=== PATIENT | female | born 1945 | race Caucasian/White ===

== ENCOUNTER 2017-01-31 11:07 | Inpatient (IN) | payer MEDICARE, MEDICAID ==
--- NOTE | 2017-01-31 11:18 | ED Physician Chart ---
ED Chief Complaint/HPI - Patient Information Date Seen:: 01/31/17 Time Seen:: 11:10 Chief Complaint:: Diffuse body ache for 2 days. History of Present Illness:: Brought in by ambulance from assisted living facility for the above reason. Pt states she has had diffuse muscle ache for 2 days. Pt denies any h/o fall or bodily injury. No fever, nasal congestion, or cough. Allergies:: Allergies Allergy/AdvReac Type Severity Reaction Status Date / Time Penicillins [PCN] Allergy Unknown Verified 02/11/16 14:41 Vitals:: see Nurse Note. Historian:: Patient, Medical Records (from transferring facility.) Family MD/PCP:: Dr. Navarro LMP:: Postmenopausal Review:: Nurse's Note Reviewed, Transfer documents Reviewed ED Review of Systems - Review of Systems General/Constitutional: No fever, No chills, No weight loss, No weakness, No edema, No loss of appetite Skin: No rash, No bruising Head: No headache, No light-headedness Eyes: No loss of vision, No pain, No diplopia ENT: No earache, No nasal drainage, No sore throat Neck: No neck pain, No thyromegaly, No stiffness Cardio Vascular: No chest pain, No palpitations, No PND, No orthopnea, No edema Pulmonary: No SOB, No cough, No wheezing GI: No nausea, No vomiting, No diarrhea, No pain, No melena, No hematochezia G/U: No dysuria, No frequency, No hematuria Template Maker: No vaginal discharge, No abnormal vaginal bleed Musculoskeletal: No bone or joint pain, No back pain, Muscle pain Endocrine: No polyuria, No polydipsia Psychiatric: No prior psych history, No depression Hematopoietic: No bruising, No lymphadenopathy Allergic/Immuno: No urticaria, No angioedema Neurological: No syncope, No focal symptoms, No weakness, No paresthesia, No headache, No dizziness, No confusion ED Past Medical History - Past Medical History Past Medical History: HTN, PUD/GERD, Other (Chronic anemia) Family History: HTN (parents) Social History: Non Smoker, No Alcohol, No Drug Use, , Care Facility Surgical History: None Medication: Reviewed Family Medical History - Family Member Nephew History Unknown: Yes Mother History Unknown: Yes Ethnicity: Living Status: Hx Family Hypertension: Yes Hx Family Diabetes: Yes ED Physical Exam - Physical Examination General/Constitutional: Awake, Well-developed, well-nourished, Alert, No distress, Non-toxic appearing, Ambulatory Other Gen/Cons comments:: Breathes comfortably, speaks clearly, and interacts appropriately. Head: Atraumatic Eyes: Lids, conjuctiva normal, PERRL, EOMI Skin: No rash, No ecchymosis, No lymphadenopathy ENMT: External ears, nose nl, Nasal exam nl, Oropharynx nl Neck: Nontender, Full ROM w/o pain, No JVD, No nuchal rigidity, No mass, No stridor Respiratory: Nl effort/Exclusion, Clear to Auscultation, No Wheeze/Rhonchi/Rales Cardio Vascular: No murmur, gallop, rubs Other Cardio Vascular comments:: Regular rhythm with mild bradycardia. VR 54. GI: No tenderness/rebounding/guarding, No organomegaly, No hernia, Normal BS's, Nondistended, No mass/bruits Other GI comments:: Abdomen is soft. Extremities: No edema Neuro/Psych: Alert/oriented (oriented x 3), Mood normal, No focal deficits ED Labs/Radiology/EKG Results - Lab Results Results: Laboratory Tests 01/31/17 01/31/17 01/31/17 11:30 11:30 11:30 WBC 8.4 RBC 4.74 Hgb 13.7 Hct 41.5 D MCV 87.6 MCH 28.9 MCHC Differential 33.0 RDW 11.7 Plt Count 133 L D MPV 8.7 Neutrophils % 75.0 Lymphocytes % 12.0 L Monocytes % 8.5 Eosinophils % 4.1 Basophils % 0.4 PT 10.1 INR 0.97 PTT (Actin FS) 24.9 L Sodium 125 L Potassium 1.7 L* Chloride 77 L Carbon Dioxide 36.0 H Anion Gap 13.7 BUN 111 H* Creatinine 2.4 H Est GFR ( Amer) 25.7 Est GFR (Non-Af Amer) 21.2 BUN/Creatinine Ratio 46.3 Glucose 168 H Calcium 9.3 Total Bilirubin 0.8 AST 31 ALT 12 Alkaline Phosphatase 85 Creatine Kinase 643 H Troponin I Total Protein 7.5 Albumin 4.1 Globulin 3.4 Albumin/Globulin Ratio 1.2 11/05/17 11:30 WBC RBC Hgb Hct MCV MCH MCHC Differential RDW Plt Count MPV Neutrophils % Lymphocytes % Monocytes % Eosinophils % Basophils % PT INR PTT (Actin FS) Sodium Potassium Chloride Carbon Dioxide Anion Gap BUN Creatinine Est GFR ( Amer) Est GFR (Non-Af Amer) BUN/Creatinine Ratio Glucose Calcium Total Bilirubin AST ALT Alkaline Phosphatase Creatine Kinase Troponin I 0.03 Total Protein Albumin Globulin Albumin/Globulin Ratio Urinalysis and magnesium level are pending. - EKG Interpretations EKG Time:: 11:26 Rate & Rhythm: Sinus bradycardia with VR 52 Comments:: NSSTT changes. No acute ischemic changes. ED Septic Shock - . Is Septic Shock (SBP<90, OR Lactate>4 mmol\L) present?: No ED Reassessment (Disposition) - Reassessment Reassessment:: 1220 Pt has been repeatedly evaluated. Pt remains stable. Lab results just became available. Because of hypokalemia, pt is to be given intravenous potassium. Magnesium level is to be ordered. Lab and EKG findings have been reviewed with pt. Management plan has been discussed. Admitting physician is to be contacted. 1232 Case was discussed with Dr. Navarro with pertinent H & P, EKG, and available lab findings reviewed. He concurred with present management plan. Pt is to be admitted to ICU under his care. He will following on pending lab results: urinalysis and Mg level. Reassessment Condition:: Improved - Diagnosis Diagnosis:: Hypokalemia. Renal insufficiency with hyponatremia. H/O HTN. H/O chronic anemia, on Fe supplement. Mild hyperglycemia. Mild bradydysrrhythmia. - Patient Disposition Admitted to:: ICU Admitting Medical Physician:: Fidencio Navarro Time:: 12:35 Condition at Disposition:: Stable, Improved
[2017-01-31 11:37] LABS: % BASOPHILS 0.4 % (0.0-2.0); % EOSINOPHILS 4.1 % (0.0-5.0); % MONOCYTES 8.5 % (2.0-10.0); HEMOGLOBIN 13.7 gm/dL (12-16); MEAN CELL VOLUME 87.6 fl (81-100); MEAN CORPUSCULAR HEMOGLOBIN 28.9 pg (27.0-31.0); MEAN PLATELET VOLUME 8.7 fl; NEUTROPHILE ABSOLUTE 6.4 Th/cmm (1.8-8.0); RED BLOOD COUNT 4.74 Mil/cmm (3.80-5.20); RED CELL DISTRIBUTION WIDTH 11.7 % (11.5-20.0); WHITE BLOOD COUNT 8.4 Th/cmm (4.8-10.8)
[2017-01-31 11:39] LABS: HEMATOCRIT 41.5 % (41.0-60); PLATELET COUNT 133 Th/cmm (150-400)
[2017-01-31 12:01] LABS: INR 0.97 (0.5-1.4); PROTHROMBIN TIME (TEST) 10.1 SECONDS (9.5-11.5)
[2017-01-31 12:04] LABS: ALB/GLOB RATIO 1.2 (1.0-1.8); ANION GAP 13.7 (7.0-16.0); BILIRUBIN,TOTAL 0.8 mg/dL (0.3-1.0); BUN/CREATININE RATIO 46.3; CALCIUM SERUM 9.3 mg/dL (8.6-10.3); CREATININE - SERUM 2.4 mg/dL (0.6-1.2)
[2017-01-31 12:10] LABS: POTASSIUM SERUM 1.7 mEq/L (3.5-5.1)
[2017-01-31] MEDS ORDERED: 0.9% NS w/40 mEq KCL 1,000 ML IV ONE (12:24)
[2017-01-31] MEDS ORDERED: KCL 20mEq/100mL Premix 20 MEQ/100 ML PIGGYBACK IV ONE ×2 (12:32→14:26)
[2017-01-31] MEDS: KCL 20mEq/100mL Premix 20 MEQ/100 ML PIGGYBACK IV SCH ×2 (12:39→16:25)
[2017-01-31 12:53] LABS: CREATINE KINASE MB 4.4 ng/mL (0.6-6.3)
[2017-01-31] MEDS ORDERED: Probiotic Screen MC PRN (14:16)
[2017-01-31] MEDS ORDERED: Potassium Phosphate 20 MMOLE in Sodium Chloride 0.9% 250 ML IV ONE (14:17)
--- NOTE | 2017-01-31 14:43 | History and Physical ---
History of Present Illness - HPI Chief Complaint: Body pain HPI: Patient refer that during last 2 days she has having body pain, felling tired. She was send to ER for evaluation and was found Hypokalemia, hyponatremia and SERGE. Vital Signs: Last Vital Signs Temp 98.3 F 01/31/17 13:05 Pulse 50 01/31/17 13:05 Resp 16 01/31/17 13:05 BP 115/54 01/31/17 13:05 Pulse Ox 94 01/31/17 13:05 Past Medical History Cardiovascular: Report: CAD, HTN Pulmonary: Report: No Pertinent Hx GOLF CADDY: Report: No Pertinent Hx GI: Report: No Pertinent Hx Psych: Report: No Pertinent Hx Musculoskeletal: Report: Weakness Rheumatologic: Report: No pertinent Hx Infectious Disease: Report: No Pertinent Hx Renal/: Report: No Pertinent Hx Endocrine: Report: No Pertinent Hx Dermatology: Report: No Pertinent Hx - Past Surgical History Past Surgical History: No pertinent Hx Family Medical History - Family Member Nephew History Unknown: Yes Mother History Unknown: Yes Ethnicity: Living Status: Hx Family Hypertension: Yes Hx Family Diabetes: Yes Social History Smoke: No Alcohol: None Drugs: None Lives: [facility] Domestic Violence: Negative - Medications Home Medications: Home Medication Medication Instructions Recorded Type Dicyclomine [Bentyl 10 Mg Cap*] 20 mg PO TID 01/31/17 History Ferrous Sulfate [Ferosul] 325 mg PO BID 01/31/17 History Furosemide [Lasix] 80 mg PO DAILY 01/31/17 History Gabapentin 800 mg PO TID 01/31/17 History Metolazone 2.5 mg PO MWF 01/31/17 History Pantoprazole Sodium 40 mg PO BID 01/31/17 History Trazodone HCl 200 mg PO HS 01/31/17 History - Allergies Allergies/Adverse Reactions: Allergies Allergy/AdvReac Type Severity Reaction Status Date / Time Penicillins [PCN] Allergy Unknown Verified 02/11/16 14:41 Review of Systems - Review of Systems Constitutional: Report: Weakness Eyes: Report: No Significant ENT: Report: No Significant Respiratory: Report: No Significant Cardiovascular: Report: No Significant Gastrointestinal: Report: No Significant Genitourinary: Report: No Significant Musculoskeletal: Report: Other (Body dave) Skin: Report: No Significant Neurological: Report: Weakness Physical Exam - Physical Exam HEENT: Report: Ears Nose Throat within normal limits Neck: Report: Within normal limits Cardiovascular Systems: Report: Bradycardia Respiratory: Report: Breath Sounds are within normal limits Abdomen: Report: Non-tender to palpation Back: Report: Inspection of back is within normal limits. Extremities: Report: Non-tender to palpation. Skin: Report: Color of skin is within normal limits Neuro/Psych: Report: Disoriented to name time or place - Assessment Assessment: Current Active Problems Problem Status Onset GENERALIZED BODY ACHES Acute Patient is awake, alert, calm in no acute distress. Dx: Hypokalemia, Hyponatremia, SERGE, Bradychardy, HTN, Chronic anemia, GERD - Plan Plan: Patient will placed in ICU, Started with IV NS, K, rergular diet. Continue with some SNF meds. Consult with Nephro and Cardio requested.
[2017-01-31] MEDS: Sodium Chloride 0.9% 1,000 ML IV SCH (16:20)
[2017-01-31] MEDS: Pantoprazole 40 mg EC Tab PO SCH (16:22)
[2017-01-31] MEDS ORDERED: FERROUS SULFATE 325 MG PO SCH (17:00)
[2017-01-31 17:06] LABS: URINE BILIRUBIN NEGATIVE (NEGATIVE); URINE BLOOD NEGATIVE (NEGATIVE); URINE GLUCOSE (UA) NEGATIVE (NEGATIVE); URINE KETONE NEGATIVE (NEGATIVE); URINE PROTEIN NEGATIVE (NEGATIVE); URINE UROBILINOGEN 0.2 E.U./dL (0.2 - 1.0)
[2017-01-31 17:07] LABS: URINE BACTERIA MANY /hpf (NONE SEEN); URINE COLOR YELLOW; URINE EPITHELIAL CELLS FEW /lpf (FEW); URINE RBC 0-2 /hpf (0-5); URINE WBC 25-50 /hpf (0-5)
[2017-01-31 18:22] VITALS: BP 122/68
[2017-01-31] MEDS ORDERED: KCL 20mEq/100mL Premix 20 MEQ/100 ML PIGGYBACK IV SCH (18:30)
[2017-01-31] MEDS ORDERED: Pneumococcal Vaccine 0.5 mL Vial IM ONE (18:37)
[2017-01-31] MEDS ORDERED: Levofloxacin 750mg/150mL 750 MG/150 ML BAG IV SCH (20:00)
[2017-01-31] MEDS ORDERED: Non-Formulary Item 1 EA (Trazodone Hcl [Trazodone Hcl] 200 MG) PO SCH (21:00)
[2017-01-31] MEDS ORDERED: Dicyclomine 10 mg Cap PO SCH (21:00)
[2017-01-31] MEDS ORDERED: Non-Formulary Item 1 EA (Gabapentin [Gabapentin] 800 MG) PO SCH (21:00)
[2017-01-31 22:51] LABS: ANION GAP 13.2 (7.0-16.0); BUN/CREATININE RATIO 48.2; CALCIUM SERUM 9.7 mg/dL (8.6-10.3); CARBON DIOXIDE 36.7 mEq/L (21.0-31.0); CREATININE - SERUM 2.2 mg/dL (0.6-1.2)
[2017-01-31 22:57] LABS: POTASSIUM SERUM 1.9 mEq/L (3.5-5.1)
[2017-02-01 05:37] LABS: ALB/GLOB RATIO 1.1 (1.0-1.8); ANION GAP 10.1 (7.0-16.0); BILIRUBIN,TOTAL 0.6 mg/dL (0.3-1.0); CALCIUM SERUM 9.1 mg/dL (8.6-10.3); CARBON DIOXIDE 36.9 mEq/L (21.0-31.0); MAGNESIUM 1.9 mg/dL (1.9-2.7); PHOSPHOROUS 2.8 mg/dL (2.5-5.0); URIC ACID 19.3 mg/dL (2.3-6.6)
[2017-02-01 06:10] LABS: % BASOPHILS 0.1 % (0.0-2.0); % EOSINOPHILS 3.8 % (0.0-5.0); % LYMPHOCYTES 12.9 % (20.0-50.0); % MONOCYTES 9.3 % (2.0-10.0); % NEUTROPHILS 73.9 % (40.0-80.0); HEMATOCRIT 39.5 % (41.0-60); HEMOGLOBIN 13.2 gm/dL (12-16); MEAN CELL VOLUME 87.2 fl (81-100); MEAN CORPUSCULAR HEMOGLOBIN 29.2 pg (27.0-31.0); MEAN CORPUSCULAR HGB CONC 33.4 pg (28.0-36.0); MEAN PLATELET VOLUME 8.7 fl; NEUTROPHILE ABSOLUTE 6.1 Th/cmm (1.8-8.0); PLATELET COUNT 138 Th/cmm (150-400); RED BLOOD COUNT 4.53 Mil/cmm (3.80-5.20); RED CELL DISTRIBUTION WIDTH 11.8 % (11.5-20.0); WHITE BLOOD COUNT 8.3 Th/cmm (4.8-10.8)
[2017-02-01 06:20] LABS: CHOLESTEROL 152 mg/dL (<200); TRIGLYCERIDES 101 mg/dL (<150)
--- NOTE | 2017-02-01 07:58 | Consultation ---
DATE OF CONSULTATION: 01/31/2017 The patient was in ICU HISTORY OF PRESENT ILLNESS: This 71-year-old female who was seen and examined at the courtesy of Dr. Navarro. The patient was admitted here with history of muscle aches and pains. Evaluated in the Emergency Room, was found to have severe hypokalemia, acute renal failure. She was also found to have sinus bradycardia. She does have history of hypertension, history of muscle weakness and aches and anemia. There is no history of diabetes. No previous history of congestive heart failure with no history of any cardiac problem. Denies any history of chest pain, no history of shortness of breath, no history of PND, no history of orthopnea, no history of cough, no history of fever, no history of hemoptysis, no history of abdominal pain, no history of nausea or vomiting. No history of hematemesis. No history of melena. No history of bleeding per rectum, change in bowel habits. PAST MEDICAL HISTORY: Not much available from the patient. SOCIAL HISTORY: Not a smoker, not a drinker. PHYSICAL EXAMINATION: VITAL SIGNS: Heart rate is about 40 beats per minute, sinus bradycardia, blood pressure is 100/50. SKIN: Normal. HEAD: Normocephalic. EYES: Conjunctivae were pink. There is no icterus in the eyes. Pupils reactive to light. NECK: There was no increased jugular venous distention, no thyromegaly, no lymphadenopathy. Carotids equal both sides. CHEST: Bilaterally symmetrical and moved well with respirations. Respiratory movements equal on both sides. Trachea is central. There is note to percussion. Breath sounds, few scattered rales. CARDIOVASCULAR SYSTEM: PMI not well localized and no positional thrill. No parasternal heave, S1 normal, S2 physiologic. There was no S3, no rub. ABDOMEN: Soft, no tenderness, no rigidity, no guarding and no organomegaly. Bowel sounds normal. EXTREMITIES: No edema, no calf tenderness. Peripheral pulses diminished. IMPRESSION: Bradycardia, hypertension, severe hypokalemia, acute renal failure, muscle aches and weakness and anemia. DISCUSSION AND SUGGESTIONS: This patient who has this bradycardia, but she is hemodynamically stable. Her O2 saturation is also perfect. We will get her echocardiogram in a.m. and repeat EKG, lipid profile, TSH. LABORATORY DATA: On reviewing the lab, she was found to have a sodium of 125, potassium 1.7, chloride 77, glucose 168, BUN ____, creatinine 2.4. CPK was 643. CPK-MB index 0.7, magnesium was 2.0. Troponin 0.03. INR was 0.97. WBC 8.4, hemoglobin 13.7, hematocrit 41.5, platelets 133,000. So Nephrology is already seeing her for hyponatremia, hypokalemia as well as acute renal failure. In the meantime, we will keep you close watch and other orders as dictated above including EKG, echocardiogram, TSH and lipid profile. Further recommendation will be made depending on the rest of tests available. JOB# [id number]
[2017-02-01] MEDS ORDERED: Potassium Chloride 40 MEQ, Lidocaine 1% 20mL Vial 25 MG in Sodium Chloride 0.9% 250 ML IV ONE (08:15)
--- NOTE | 2017-02-01 08:56 | General Progress Note ---
Subjective - Review of Systems Service Date: 02/01/17 Subjective: I feel better Objective - Results Result Diagrams: 02/01/17 05:00 02/01/17 05:00 Recent Labs: Laboratory Last Values WBC 8.3 Th/cmm (4.8-10.8) 02/01/17 05:00 RBC 4.53 Mil/cmm (3.80-5.20) 02/01/17 05:00 Hgb 13.2 gm/dL (12-16) 02/01/17 05:00 Hct 39.5 % (41.0-60) L 02/01/17 05:00 MCV 87.2 fl (81-100) 02/01/17 05:00 MCH 29.2 pg (27.0-31.0) 02/01/17 05:00 MCHC Differential 33.4 pg (28.0-36.0) 02/01/17 05:00 RDW 11.8 % (11.5-20.0) 02/01/17 05:00 Plt Count 138 Th/cmm (150-400) L 02/01/17 05:00 MPV 8.7 fl 02/01/17 05:00 Neutrophils % 73.9 % (40.0-80.0) 02/01/17 05:00 Lymphocytes % 12.9 % (20.0-50.0) L 02/01/17 05:00 Monocytes % 9.3 % (2.0-10.0) 02/01/17 05:00 Eosinophils % 3.8 % (0.0-5.0) 02/01/17 05:00 Basophils % 0.1 % (0.0-2.0) 02/01/17 05:00 Eos Smear Source URINE 01/31/17 15:30 Eos Smear Total Cells NONE SEEN (NONE SEEN) 01/31/17 15:30 PT 10.1 SECONDS (9.5-11.5) 01/31/17 11:30 INR 0.97 (0.5-1.4) 01/31/17 11:30 PTT (Actin FS) 24.9 SECONDS (26.0-38.0) L 01/31/17 11:30 Sodium 126 mEq/L (136-145) L 02/01/17 05:00 Potassium 2.0 mEq/L (3.5-5.1) L* 02/01/17 05:00 Chloride 81 mEq/L (98-107) L 02/01/17 05:00 Carbon Dioxide 36.9 mEq/L (21.0-31.0) H 02/01/17 05:00 Anion Gap 10.1 (7.0-16.0) 02/01/17 05:00 BUN 98 mg/dL (7-25) H* 02/01/17 05:00 Creatinine 2.0 mg/dL (0.6-1.2) H 02/01/17 05:00 Est GFR ( Amer) 31.7 ml/min (>90) 02/01/17 05:00 Est GFR (Non-Af Amer) 26.2 ml/min 02/01/17 05:00 BUN/Creatinine Ratio 49.0 02/01/17 05:00 Glucose 131 mg/dL (40-70) H 02/01/17 05:00 Uric Acid 19.3 mg/dL (2.3-6.6) H 02/01/17 05:00 Calcium 9.1 mg/dL (8.6-10.3) 02/01/17 05:00 Phosphorus 2.8 mg/dL (2.5-5.0) 02/01/17 05:00 Magnesium 1.9 mg/dL (1.9-2.7) 02/01/17 05:00 Total Bilirubin 0.6 mg/dL (0.3-1.0) 02/01/17 05:00 AST 22 U/L (13-39) 02/01/17 05:00 ALT 10 U/L (7-52) 02/01/17 05:00 Alkaline Phosphatase 78 U/L (34-104) 02/01/17 05:00 Creatine Kinase 320 U/L (30-223) H 02/01/17 05:00 CK-MB (CK-2) 4.4 ng/mL (0.6-6.3) 01/31/17 11:30 Troponin I 0.03 ng/mL (0.01-0.05) 01/31/17 11:30 Total Protein 6.9 gm/dL (6.0-8.3) 02/01/17 05:00 Albumin 3.6 gm/dL (3.7-5.3) L 02/01/17 05:00 Globulin 3.3 gm/dL 02/01/17 05:00 Albumin/Globulin Ratio 1.1 (1.0-1.8) 02/01/17 05:00 Triglycerides 101 mg/dL (<150) 02/01/17 05:00 Cholesterol 152 mg/dL (<200) 02/01/17 05:00 LDL Cholesterol Direct 112 mg/dL (75-193) 02/01/17 05:00 HDL Cholesterol 39 mg/dL (23-92) 02/01/17 05:00 TSH 0.72 uIU/ml (0.34-5.60) 02/01/17 05:00 Urine Source CLEAN C 01/31/17 15:30 Urine Color YELLOW 01/31/17 15:30 Urine Clarity HAZY (CLEAR) 01/31/17 15:30 Urine pH 7.0 (4.6 - 8.0) 01/31/17 15:30 Ur Specific [place] 1.010 (1.005-1.030) 01/31/17 15:30 Urine Protein NEGATIVE mg/dL (NEGATIVE) 01/31/17 15:30 Urine Glucose (UA) NEGATIVE mg/dL (NEGATIVE) 01/31/17 15:30 Urine Ketones NEGATIVE mg/dL (NEGATIVE) 01/31/17 15:30 Urine Blood NEGATIVE (NEGATIVE) 01/31/17 15:30 Urine Nitrate NEGATIVE (NEGATIVE) 01/31/17 15:30 Urine Bilirubin NEGATIVE (NEGATIVE) 01/31/17 15:30 Urine Urobilinogen 0.2 E.U./dL (0.2 - 1.0) 01/31/17 15:30 Ur Leukocyte Esterase LARGE (NEGATIVE) H 01/31/17 15:30 Urine RBC 0-2 /hpf (0-5) 01/31/17 15:30 Urine WBC 25-50 /hpf (0-5) H 01/31/17 15:30 Ur Epithelial Cells FEW /lpf (FEW) 01/31/17 15:30 Urine Bacteria MANY /hpf (NONE SEEN) 01/31/17 15:30 Ur Random Sodium 69 mmol/L 01/31/17 15:30 Urine Creatinine 41.0 mg/dl (28.0-217.0) 01/31/17 15:30 - Physical Exam Vitals and I&O: Vital Signs Temp 97.3 F 02/01/17 06:00 Pulse 51 02/01/17 06:50 Resp 14 02/01/17 06:50 BP 105/50 02/01/17 06:00 Pulse Ox 98 02/01/17 06:50 Intake & Output 01/31/17 02/01/17 02/01/17 18:59 06:59 18:59 Intake Total 500 1450 Output Total 50 1400 Balance 450 50 Weight (lbs) 71.214 kg 71.214 kg Intake: Intake, IV Amount 200 1150 KCL 20mEq/100mL Premix 20 100 meq In 100 ml @ 50 mls/ hr IV 1830 [facility] Rx#: [id number] KCL 20mEq/100mL Premix 20 100 meq In 100 ml @ 50 mls/ hr IV Q2H [facility] Rx#: [id number] Levofloxacin 750mg/150mL 150 750 mg In 150 ml @ 100 mls/hr IV Q48H [facility] Rx#: [id number] Sodium Chloride 0.9% 1, 1000 000 ml @ 100 mls/hr IV . Q10H [facility] Rx#:[id number] Oral 300 300 Tube Feeding 0 TPN/PPN 0 Blood Product 0 Lipid 0 Albumin 0 Other 0 Output: Gastric Drainage 0 Urine 50 1400 Stool 0 Urine/Stool Mix 0 Emesis 0 Hemodialysis 0 Other 0 Other: # Voids 1 # Bowel Movements 0 0 Active Medications: Current Medications Sodium Chloride (Nacl 0.9%) 1,000 mls @ 100 mls/hr IV .Q10H [facility] Stop: 04/01/17 14:16 Last Infusion: 02/01/17 02:20 Dose: Infused Levofloxacin (Levaquin Pb) 750 mg in 150 mls @ 100 mls/hr IV Q48H ANT Stop: 04/01/17 19:59 Last Infusion: 01/31/17 22:05 Dose: Infused Potassium Chloride 40 meq/Lidocaine HCl 25 mg/ Sodium Chloride 272.5 mls @ 68 mls/hr IV X1 ONE Stop: 02/01/17 12:15 Last Admin: 02/01/17 08:36 Dose: 68 mls/hr Miscellaneous (Probiotic Screen) 1 ea MC PRN PRN PRN Reason: PROTOCOL Stop: 04/01/17 14:15 Pantoprazole Sodium (Protonix) 40 mg PO BID [facility] Stop: 04/01/17 16:59 Last Admin: 01/31/17 16:22 Dose: 40 mg Potassium Chloride (Klor-Con) 20 meq PO DAILY [facility] Stop: 04/02/17 08:59 General: Alert, Oriented x3, No acute distress HEENT: Atraumatic Neck: Supple Cardiovascular: Regular rate, Other (Low BP) Lungs: Clear to auscultation Abdomen: Bowel sounds, Soft Extremities: Other (No edema) Neurological: Normal gait (Non ambulatory at this moment) Skin: Other (Skin of lower extremities is dark, Pulses are weak) Psych/Mental Status: Mental status NL Assessment/Plan - Problem List Patient Problems: All Active Problems GENERALIZED BODY ACHES (Acute) - Assessment Assessment: Current Active Problems Problem Status Onset GENERALIZED BODY ACHES Acute Patient is awake, alert, calm in no acute distress. Dx: Hypokalemia, Hyponatremia, SERGE, Bradychardy, HTN, Chronic anemia, GERD - Plan Plan: Patient is improving. K, Na, Renal function and creatinine kinese improving. Already seen by Nephro. Will continue to monitor.
[2017-02-01] MEDS ORDERED: Ferrous Sulfate 325 MG TAB PO SCH (09:00)
[2017-02-01] MEDS: Pantoprazole 40 mg EC Tab PO SCH ×2 (09:00→16:24)
[2017-02-01] MEDS: Potassium Chloride 20 mEq ER Tab PO SCH (09:00)
--- NOTE | 2017-02-01 12:08 | Diagnostic Imaging Report ---
Renal ultrasound HISTORY: Abnormal renal function test The exam of the right kidney is very limited. Poor delineation of the renal margins. This appears to exhibit a grossly overall normal size with no obvious focal lesions or hydronephrosis. The left kidney measures 10.6 x 5.2 x 5.4 cm. No definite focal lesions or hydronephrosis. Findings consistent with a Ramírez catheter seen within the lumen of the urinary bladder. IMPRESSION: 1. Very Limited/suboptimal visualization of the right kidney. No obvious hydronephrosis. 2. No definite focal abnormalities or hydronephrosis involving the left kidney.
[2017-02-01 12:21] LABS: CREATINE KINASE MB 2.8 ng/mL (0.6-6.3)
--- NOTE | 2017-02-01 15:34 | General Progress Note ---
Subjective - Review of Systems Service Date: 02/01/17 Subjective: sleeping, arousable Objective - Results Result Diagrams: 02/01/17 05:00 02/01/17 05:00 Recent Labs: Laboratory Last Values WBC 8.3 Th/cmm (4.8-10.8) 02/01/17 05:00 RBC 4.53 Mil/cmm (3.80-5.20) 02/01/17 05:00 Hgb 13.2 gm/dL (12-16) 02/01/17 05:00 Hct 39.5 % (41.0-60) L 02/01/17 05:00 MCV 87.2 fl (81-100) 02/01/17 05:00 MCH 29.2 pg (27.0-31.0) 02/01/17 05:00 MCHC Differential 33.4 pg (28.0-36.0) 02/01/17 05:00 RDW 11.8 % (11.5-20.0) 02/01/17 05:00 Plt Count 138 Th/cmm (150-400) L 02/01/17 05:00 MPV 8.7 fl 02/01/17 05:00 Neutrophils % 73.9 % (40.0-80.0) 02/01/17 05:00 Lymphocytes % 12.9 % (20.0-50.0) L 02/01/17 05:00 Monocytes % 9.3 % (2.0-10.0) 02/01/17 05:00 Eosinophils % 3.8 % (0.0-5.0) 02/01/17 05:00 Basophils % 0.1 % (0.0-2.0) 02/01/17 05:00 Eos Smear Source URINE 01/31/17 15:30 Eos Smear Total Cells NONE SEEN (NONE SEEN) 01/31/17 15:30 PT 10.1 SECONDS (9.5-11.5) 01/31/17 11:30 INR 0.97 (0.5-1.4) 01/31/17 11:30 PTT (Actin FS) 24.9 SECONDS (26.0-38.0) L 01/31/17 11:30 Sodium 126 mEq/L (136-145) L 02/01/17 05:00 Potassium 2.0 mEq/L (3.5-5.1) L* 02/01/17 05:00 Chloride 81 mEq/L (98-107) L 02/01/17 05:00 Carbon Dioxide 36.9 mEq/L (21.0-31.0) H 02/01/17 05:00 Anion Gap 10.1 (7.0-16.0) 02/01/17 05:00 BUN 98 mg/dL (7-25) H* 02/01/17 05:00 Creatinine 2.0 mg/dL (0.6-1.2) H 02/01/17 05:00 Est GFR ( Amer) 31.7 ml/min (>90) 02/01/17 05:00 Est GFR (Non-Af Amer) 26.2 ml/min 02/01/17 05:00 BUN/Creatinine Ratio 49.0 02/01/17 05:00 Glucose 131 mg/dL (40-70) H 02/01/17 05:00 Uric Acid 19.3 mg/dL (2.3-6.6) H 02/01/17 05:00 Calcium 9.1 mg/dL (8.6-10.3) 02/01/17 05:00 Phosphorus 2.8 mg/dL (2.5-5.0) 02/01/17 05:00 Magnesium 1.9 mg/dL (1.9-2.7) 02/01/17 05:00 Total Bilirubin 0.6 mg/dL (0.3-1.0) 02/01/17 05:00 AST 22 U/L (13-39) 02/01/17 05:00 ALT 10 U/L (7-52) 02/01/17 05:00 Alkaline Phosphatase 78 U/L (34-104) 02/01/17 05:00 Creatine Kinase 320 U/L (30-223) H 02/01/17 05:00 CK-MB (CK-2) 2.8 ng/mL (0.6-6.3) 02/01/17 05:00 Troponin I 0.03 ng/mL (0.01-0.05) 01/31/17 11:30 Total Protein 6.9 gm/dL (6.0-8.3) 02/01/17 05:00 Albumin 3.6 gm/dL (3.7-5.3) L 02/01/17 05:00 Globulin 3.3 gm/dL 02/01/17 05:00 Albumin/Globulin Ratio 1.1 (1.0-1.8) 02/01/17 05:00 Triglycerides 101 mg/dL (<150) 02/01/17 05:00 Cholesterol 152 mg/dL (<200) 02/01/17 05:00 LDL Cholesterol Direct 112 mg/dL (75-193) 02/01/17 05:00 HDL Cholesterol 39 mg/dL (23-92) 02/01/17 05:00 TSH 0.72 uIU/ml (0.34-5.60) 02/01/17 05:00 Urine Source CLEAN C 01/31/17 15:30 Urine Color YELLOW 01/31/17 15:30 Urine Clarity HAZY (CLEAR) 01/31/17 15:30 Urine pH 7.0 (4.6 - 8.0) 01/31/17 15:30 Ur Specific [place] 1.010 (1.005-1.030) 01/31/17 15:30 Urine Protein NEGATIVE mg/dL (NEGATIVE) 01/31/17 15:30 Urine Glucose (UA) NEGATIVE mg/dL (NEGATIVE) 01/31/17 15:30 Urine Ketones NEGATIVE mg/dL (NEGATIVE) 01/31/17 15:30 Urine Blood NEGATIVE (NEGATIVE) 01/31/17 15:30 Urine Nitrate NEGATIVE (NEGATIVE) 01/31/17 15:30 Urine Bilirubin NEGATIVE (NEGATIVE) 01/31/17 15:30 Urine Urobilinogen 0.2 E.U./dL (0.2 - 1.0) 01/31/17 15:30 Ur Leukocyte Esterase LARGE (NEGATIVE) H 01/31/17 15:30 Urine RBC 0-2 /hpf (0-5) 01/31/17 15:30 Urine WBC 25-50 /hpf (0-5) H 01/31/17 15:30 Ur Epithelial Cells FEW /lpf (FEW) 01/31/17 15:30 Urine Bacteria MANY /hpf (NONE SEEN) 01/31/17 15:30 Ur Random Sodium 69 mmol/L 01/31/17 15:30 Urine Creatinine 41.0 mg/dl (28.0-217.0) 01/31/17 15:30 - Physical Exam Vitals and I&O: Vital Signs Temp 97 F 02/01/17 11:00 Pulse 53 02/01/17 13:00 Resp 14 02/01/17 13:00 BP 95/43 02/01/17 13:00 Pulse Ox 98 02/01/17 11:00 Intake & Output 01/31/17 02/01/17 02/01/17 18:59 06:59 18:59 Intake Total 500 1450 Output Total 50 1400 Balance 450 50 Weight (lbs) 71.214 kg 71.214 kg Intake: Intake, IV Amount 200 1150 KCL 20mEq/100mL Premix 20 100 meq In 100 ml @ 50 mls/ hr IV 1830 ANT Rx#: [id number] KCL 20mEq/100mL Premix 20 100 meq In 100 ml @ 50 mls/ hr IV Q2H [facility] Rx#: [id number] Levofloxacin 750mg/150mL 150 750 mg In 150 ml @ 100 mls/hr IV Q48H [facility] Rx#: [id number] Sodium Chloride 0.9% 1, 1000 000 ml @ 100 mls/hr IV . Q10H [facility] Rx#:[id number] Oral 300 300 Tube Feeding 0 TPN/PPN 0 Blood Product 0 Lipid 0 Albumin 0 Other 0 Output: Gastric Drainage 0 Urine 50 1400 Stool 0 Urine/Stool Mix 0 Emesis 0 Hemodialysis 0 Other 0 Other: # Voids 1 # Bowel Movements 0 0 Active Medications: Current Medications Sodium Chloride (Nacl 0.9%) 1,000 mls @ 100 mls/hr IV .Q10H [facility] Stop: 04/01/17 14:16 Last Infusion: 02/01/17 02:20 Dose: Infused Levofloxacin (Levaquin Pb) 750 mg in 150 mls @ 100 mls/hr IV Q48H ANT Stop: 04/01/17 19:59 Last Infusion: 01/31/17 22:05 Dose: Infused Miscellaneous (Probiotic Screen) 1 ea MC PRN PRN PRN Reason: PROTOCOL Stop: 04/01/17 14:15 Pantoprazole Sodium (Protonix) 40 mg PO BID ANT Stop: 04/01/17 16:59 Last Admin: 02/01/17 09:00 Dose: 40 mg Potassium Chloride (Klor-Con) 20 meq PO DAILY ANT Stop: 04/02/17 08:59 Last Admin: 02/01/17 09:00 Dose: 20 meq Potassium Chloride (Klor-Con) 40 meq PO X1 ONE Stop: 02/01/17 16:01 General: Alert, Oriented x3, No acute distress HEENT: Atraumatic, EOMI, Mucous membr. moist/pink Neck: Supple, +2 carotid pulse wo bruit Cardiovascular: Regular rate, Normal S1, Normal S2, Other (Low BP) Lungs: Other (decreased BS) Abdomen: Bowel sounds, Soft Extremities: Other (No edema), no Edema Neurological: Sensation intact Skin: no Rash Psych/Mental Status: Mental status NL Assessment/Plan - Problem List Patient Problems: All Active Problems GENERALIZED BODY ACHES (Acute) - Assessment Assessment: Electrolyte abnormalities Cx UTI SERGE Bradycardia 2nd to hypokalemia Ess HTN Anemia CD GERD - Plan Plan: Lab - Result Diagrams 02/01/17 05:00 02/01/17 05:00 Current Medications Sodium Chloride (Nacl 0.9%) 1,000 mls @ 100 mls/hr IV .Q10H ANT Stop: 04/01/17 14:16 Last Infusion: 02/01/17 02:20 Dose: Infused Levofloxacin (Levaquin Pb) 750 mg in 150 mls @ 100 mls/hr IV Q48H ANT Stop: 04/01/17 19:59 Last Infusion: 01/31/17 22:05 Dose: Infused Miscellaneous (Probiotic Screen) 1 ea MC PRN PRN PRN Reason: PROTOCOL Stop: 04/01/17 14:15 Pantoprazole Sodium (Protonix) 40 mg PO BID ANT Stop: 04/01/17 16:59 Last Admin: 02/01/17 09:00 Dose: 40 mg Potassium Chloride (Klor-Con) 20 meq PO DAILY ANT Stop: 04/02/17 08:59 Last Admin: 02/01/17 09:00 Dose: 20 meq Potassium Chloride (Klor-Con) 40 meq PO X1 ONE Stop: 02/01/17 16:01 Kidney fnc gradually improvimg electrolytes basically the same, continue to replace f/u electrolytes, urine C/S
[2017-02-01] MEDS ORDERED: Potassium Chloride 20 mEq ER Tab PO ONE ×2 (16:00→23:52)
--- NOTE | 2017-02-01 16:47 | Consultation ---
DATE OF CONSULTATION: 01/31/2017 REASON FOR CONSULTATION: Acute kidney failure, electrolyte imbalance, and fluid management. HISTORY OF PRESENT ILLNESS: This is a 71-year-old female with past medical history of hypertension who came in because of sudden weakness involving her lower extremities. Two weeks prior to admission, the patient had bipedal edema. She was started on furosemide and metolazone. Two days prior to admission, she gradually developed weakness involving lower extremities. This was associated with muscles aches and pain. A few hours prior to admission, she can no longer ambulate. She was then brought to the Emergency Room. Sodium level was 125 with a potassium of 1.7, BUN/creatinine of 111/2.4 and CO2 of 36. CPK was 643. She had no history of nausea and vomiting as well as diarrhea. PAST MEDICAL HISTORY: 1. Essential hypertension. 2. Peripheral neuropathy. 3. Gastritis. CURRENT MEDICATIONS: She was on metolazone, furosemide, gabapentin, Trazodone, dicyclomine, ferrous sulfate, and pantoprazole. ALLERGIES: No known drug allergies. SOCIAL HISTORY: She did have a history of smoking and alcohol consumption years ago. She also had a history of illicit drug use and quit about 2 years of ago. She has been clean and has been staying at the [facility] living home. She used to be a drug counselor. FAMILY HISTORY: Family history is predominantly diabetes as well as heart disease. REVIEW OF SYSTEMS: CONSTITUTIONAL: She did complain of weakness involving her lower extremities. No fever, no chills. Appetite had been fair. HEENT: No mention of headaches, no dizziness. Vision and hearing acuity has diminished due to age. CARDIORESPIRATORY: No chest pain, palpitations, diaphoresis, or cough. No shortness of breath. GASTROINTESTINAL: She has a history of gastritis. No diarrhea. No abdominal pain or cramping. No nausea or vomiting. No melena or hematochezia. ENDOCRINE: No history of diabetes, thyroid abnormalities, no dyslipidemia. MUSCULOSKELETAL: She has occasional arthralgias. GENITOURINARY: No history of kidney failure in the past; however, she comes in now with acute kidney injury. She has been on diuretics for the last couple of weeks. HEMATOLOGIC: She has no history of anemia. NEUROPSYCH: No syncopal episode. No seizure activity; however, as mentioned, she has generalized weakness involving her lower extremities along with pain and aches. PHYSICAL EXAMINATION: GENERAL: The patient is alert, verbal, comfortable. VITAL SIGNS: Blood pressure now is 111/62, pulse 58, and temperature 98.3 degrees. SKIN: Poor turgor, warm. No rash, no jaundice appreciated. HEENT: Head normocephalic, atraumatic. Eyes: Extraocular muscles intact. Pupils equal, round, reactive to light and accommodates. Anicteric sclerae. [place] conjunctivae. Nose: Midline nasal septum. Mouth: Dry mucosa, good dentition. NECK: Supple, no adenopathy, no thyromegaly, no bruits. Trachea palpated in the midline. CHEST AND CARDIOVASCULAR: S1, S2. No rub, murmur, nor gallop appreciated. Point of maximal impulse fifth intercostal space, left midclavicular line. No abdominal or femoral bruits appreciated. She remains bradycardic. LUNGS: Equal expansion. No use of accessory muscles. No supraclavicular retractions. Decreased breath sounds, but clear to auscultation without any wheeze. BREASTS: Symmetrical, without any discharge. ABDOMEN: Mildly globular, soft. Positive for bowel sounds. No bruits, either diastolic or systolic. RECTAL: Lax sphincter tone. GENITOURINARY: Normal appearing female genitalia. MUSCULOSKELETAL: No effusions present in her joints, but unable to assess her range of motion. EXTREMITIES: No evidence of any edema, cyanosis, nor clubbing with palpable femoral, popliteal, and dorsalis pedis pulses. NEUROLOGIC: The patient is alert, verbal. Motor, upper extremities is 5/5 and lower extremities about 3/5. Sensory intact minute. Cranial nerves II through XII intact. LABORATORY DATA: Revealed a white count of 8.4, hemoglobin 13.7, hematocrit 41.5, platelets 133, and polys 75%. Sodium 125, potassium 1.7, chloride 77, bicarbonate 36, BUN 111, creatinine 2.4, glucose 168, calcium 9.3, magnesium is 2. Creatinine kinase 643. IMPRESSION: 1. Acute kidney injury. MDRD GFR 21 mL per minute. The patient had been taking 2 diuretics for peripheral edema. She eventually developed prerenal azotemia, which could eventually progress to acute tubular injury. 2. Hyponatremia and hypokalemia secondary to her diuretics. 3. Muscles weakness/pain secondary also to her hypokalemia. 4. Contraction alkalosis. 5. Mildly elevated CPK, but doubt the patient has ongoing rhabdomyolysis. 6. Bradycardia secondary to hypokalemia. PLAN: 1. IV fluids. 2. Discontinue furosemide, metolazone. 3. Discontinue gabapentin. 4. Urinalysis. 5. Urine spot sodium, eosinophils, creatinine, and myoglobin. 6. Urine microalbumin to creatinine ratio. 7. Serum osmolality and uric acid. 8. Renal ultrasound. Thank you, Dr. Navarro for this consult. We will follow the patient closely with you. [facility]# [id number]
--- NOTE | 2017-02-01 19:04 | Cardiology ---
02/01/[address] Navarro. M-MODE ECHOCARDIOGRAM: Mitral valve, anterior leaflet of mitral valve shows normal excursion, EF velocity. Posterior leaflet of the mitral valve shows normal excursion. Left ventricular posterior wall shows increased thickness, normal excursion. Interventricular septum shows increased thickness, normal excursion. Hypertrophy of the left ventricle, ejection fraction 71%. Left atrium normal. Aortic root shows normal dimension, normal excursion of aortic leaflets. CONCLUSION: Hypertrophy of the left ventricle, ejection fraction 71%. 2D ECHO: Long axis view showed normal-sized left ventricle with hypertrophy of the left ventricle. Left atrium normal. Aortic root shows normal dimension, normal excursion of aortic leaflets. Short axis view of mitral valve normal. Short axis view of aortic valve normal. Apical four chamber view showed normal-sized left ventricle with hypertrophy of the left ventricle. Left atrium normal. Right ventricular cavity, right atrium normal, no pericardial effusion. CONCLUSION: Hypertrophy of the left ventricle, ejection fraction 71%. Doppler study shows prominent A wave consistent with poor compliance of left ventricle with [id number] tricuspid regurgitation, [id number] pulmonary regurgitation, trace mitral regurgitation. Right ventricular systolic pressure 41 mmHg. [facility]# [id number]
[2017-02-02 04:42] LABS: % BASOPHILS 1.2 % (0.0-2.0); % EOSINOPHILS 6.8 % (0.0-5.0); % LYMPHOCYTES 18.2 % (20.0-50.0); % MONOCYTES 7.2 % (2.0-10.0); % NEUTROPHILS 66.6 % (40.0-80.0); HEMATOCRIT 38.5 % (41.0-60); MEAN CELL VOLUME 87.2 fl (81-100); MEAN CORPUSCULAR HEMOGLOBIN 29.5 pg (27.0-31.0); MEAN CORPUSCULAR HGB CONC 33.9 pg (28.0-36.0); MEAN PLATELET VOLUME 8.5 fl; NEUTROPHILE ABSOLUTE 6.3 Th/cmm (1.8-8.0); PLATELET COUNT 147 Th/cmm (150-400); RED BLOOD COUNT 4.42 Mil/cmm (3.80-5.20); RED CELL DISTRIBUTION WIDTH 11.8 % (11.5-20.0); WHITE BLOOD COUNT 9.4 Th/cmm (4.8-10.8)
[2017-02-02 05:00] LABS: ANION GAP 9.8 (7.0-16.0)
[2017-02-02 05:01] LABS: ALB/GLOB RATIO 1.1 (1.0-1.8); BILIRUBIN,TOTAL 0.4 mg/dL (0.3-1.0); BUN/CREATININE RATIO 39.4; CREATININE - SERUM 1.7 mg/dL (0.6-1.2)
[2017-02-02 05:08] LABS: POTASSIUM SERUM 2.8 mEq/L (3.5-5.1)
[2017-02-02] MEDS ORDERED: Potassium Chloride 20 mEq ER Tab PO ONE ×2 (07:08→10:00)
[2017-02-02] MEDS: Potassium Chloride 20 mEq ER Tab PO SCH (08:25)
[2017-02-02] MEDS: Pantoprazole 40 mg EC Tab PO SCH ×2 (08:25→16:26)
--- NOTE | 2017-02-02 08:48 | General Progress Note ---
Subjective - Review of Systems Service Date: 02/02/17 Subjective: I feel better Objective - Results Result Diagrams: 02/02/17 04:35 02/02/17 04:35 Recent Labs: Laboratory Last Values WBC 9.4 Th/cmm (4.8-10.8) 02/02/17 04:35 RBC 4.42 Mil/cmm (3.80-5.20) 02/02/17 04:35 Hgb 13.0 gm/dL (12-16) 02/02/17 04:35 Hct 38.5 % (41.0-60) L 02/02/17 04:35 MCV 87.2 fl (81-100) 02/02/17 04:35 MCH 29.5 pg (27.0-31.0) 02/02/17 04:35 MCHC Differential 33.9 pg (28.0-36.0) 02/02/17 04:35 RDW 11.8 % (11.5-20.0) 02/02/17 04:35 Plt Count 147 Th/cmm (150-400) L 02/02/17 04:35 MPV 8.5 fl 02/02/17 04:35 Neutrophils % 66.6 % (40.0-80.0) 02/02/17 04:35 Lymphocytes % 18.2 % (20.0-50.0) L 02/02/17 04:35 Monocytes % 7.2 % (2.0-10.0) 02/02/17 04:35 Eosinophils % 6.8 % (0.0-5.0) H 02/02/17 04:35 Basophils % 1.2 % (0.0-2.0) 02/02/17 04:35 Eos Smear Source URINE 01/31/17 15:30 Eos Smear Total Cells NONE SEEN (NONE SEEN) 01/31/17 15:30 PT 10.1 SECONDS (9.5-11.5) 01/31/17 11:30 INR 0.97 (0.5-1.4) 01/31/17 11:30 PTT (Actin FS) 24.9 SECONDS (26.0-38.0) L 01/31/17 11:30 Sodium 130 mEq/L (136-145) L 02/02/17 04:35 Potassium 2.8 mEq/L (3.5-5.1) L* 02/02/17 04:35 Chloride 94 mEq/L (98-107) L 02/02/17 04:35 Carbon Dioxide 29.0 mEq/L (21.0-31.0) 02/02/17 04:35 Anion Gap 9.8 (7.0-16.0) 02/02/17 04:35 BUN 67 mg/dL (7-25) H 02/02/17 04:35 Creatinine 1.7 mg/dL (0.6-1.2) H 02/02/17 04:35 Est GFR ( Amer) 38.2 ml/min (>90) 02/02/17 04:35 Est GFR (Non-Af Amer) 31.6 ml/min 02/02/17 04:35 BUN/Creatinine Ratio 39.4 02/02/17 04:35 Glucose 188 mg/dL (40-70) H D 02/02/17 04:35 Hemoglobin A1c % 5.8 % (4.0-6.0) 02/02/17 04:35 Uric Acid 19.3 mg/dL (2.3-6.6) H 02/01/17 05:00 Calcium 9.0 mg/dL (8.6-10.3) 02/02/17 04:35 Phosphorus 2.8 mg/dL (2.5-5.0) 02/01/17 05:00 Magnesium 1.9 mg/dL (1.9-2.7) 02/01/17 05:00 Total Bilirubin 0.4 mg/dL (0.3-1.0) 02/02/17 04:35 AST 17 U/L (13-39) 02/02/17 04:35 ALT 9 U/L (7-52) 02/02/17 04:35 Alkaline Phosphatase 71 U/L (34-104) 02/02/17 04:35 Creatine Kinase 320 U/L (30-223) H 02/01/17 05:00 CK-MB (CK-2) 2.8 ng/mL (0.6-6.3) 02/01/17 05:00 Troponin I 0.03 ng/mL (0.01-0.05) 01/31/17 11:30 B-Natriuretic Peptide 155.0 pg/mL (5.0-100.0) H 02/02/17 04:35 Total Protein 6.5 gm/dL (6.0-8.3) 02/02/17 04:35 Albumin 3.4 gm/dL (3.7-5.3) L 02/02/17 04:35 Globulin 3.1 gm/dL 02/02/17 04:35 Albumin/Globulin Ratio 1.1 (1.0-1.8) 02/02/17 04:35 Triglycerides 101 mg/dL (<150) 02/01/17 05:00 Cholesterol 152 mg/dL (<200) 02/01/17 05:00 LDL Cholesterol Direct 112 mg/dL (75-193) 02/01/17 05:00 HDL Cholesterol 39 mg/dL (23-92) 02/01/17 05:00 TSH 0.72 uIU/ml (0.34-5.60) 02/01/17 05:00 Urine Source CLEAN C 01/31/17 15:30 Urine Color YELLOW 01/31/17 15:30 Urine Clarity HAZY (CLEAR) 01/31/17 15:30 Urine pH 7.0 (4.6 - 8.0) 01/31/17 15:30 Ur Specific [place] 1.010 (1.005-1.030) 01/31/17 15:30 Urine Protein NEGATIVE mg/dL (NEGATIVE) 01/31/17 15:30 Urine Glucose (UA) NEGATIVE mg/dL (NEGATIVE) 01/31/17 15:30 Urine Ketones NEGATIVE mg/dL (NEGATIVE) 01/31/17 15:30 Urine Blood NEGATIVE (NEGATIVE) 01/31/17 15:30 Urine Nitrate NEGATIVE (NEGATIVE) 01/31/17 15:30 Urine Bilirubin NEGATIVE (NEGATIVE) 01/31/17 15:30 Urine Urobilinogen 0.2 E.U./dL (0.2 - 1.0) 01/31/17 15:30 Ur Leukocyte Esterase LARGE (NEGATIVE) H 01/31/17 15:30 Urine RBC 0-2 /hpf (0-5) 01/31/17 15:30 Urine WBC 25-50 /hpf (0-5) H 01/31/17 15:30 Ur Epithelial Cells FEW /lpf (FEW) 01/31/17 15:30 Urine Bacteria MANY /hpf (NONE SEEN) 01/31/17 15:30 Ur Random Sodium 69 mmol/L 01/31/17 15:30 Urine Creatinine 41.0 mg/dl (28.0-217.0) 01/31/17 15:30 - Physical Exam Vitals and I&O: Vital Signs Temp 98.1 F 02/02/17 05:00 Pulse 60 02/02/17 07:41 Resp 13 02/02/17 07:41 BP 96/50 02/02/17 06:00 Pulse Ox 98 02/02/17 07:41 Intake & Output 02/01/17 02/02/17 02/02/17 18:59 06:59 18:59 Intake Total 700 800 Output Total 1600 1500 Balance -900 -700 Weight (lbs) 71.214 kg 71.214 kg Intake: Oral 700 800 Output: Urine 1600 1500 Active Medications: Current Medications Sodium Chloride (Nacl 0.9%) 1,000 mls @ 100 mls/hr IV .Q10H ANT Stop: 04/01/17 14:16 Last Infusion: 02/01/17 02:20 Dose: Infused Levofloxacin (Levaquin Pb) 750 mg in 150 mls @ 100 mls/hr IV Q48H ANT Stop: 04/01/17 19:59 Last Infusion: 01/31/17 22:05 Dose: Infused Miscellaneous (Probiotic Screen) 1 ea MC PRN PRN PRN Reason: PROTOCOL Stop: 04/01/17 14:15 Pantoprazole Sodium (Protonix) 40 mg PO BID ANT Stop: 04/01/17 16:59 Last Admin: 02/02/17 08:25 Dose: 40 mg Potassium Chloride (Klor-Con) 20 meq PO DAILY ANT Stop: 04/02/17 08:59 Last Admin: 02/02/17 08:25 Dose: 20 meq Potassium Chloride (Klor-Con) 40 meq PO X1 ONE Stop: 02/02/17 10:01 General: Alert, Oriented x3, No acute distress HEENT: Atraumatic, EOMI, Mucous membr. moist/pink Neck: Supple, +2 carotid pulse wo bruit Cardiovascular: Regular rate, Normal S1, Normal S2, Other (Low BP) Lungs: Other (decreased BS) Abdomen: Bowel sounds, Soft Extremities: Other (No edema, ), no Edema Neurological: Sensation intact, Other (Unstable gait) Skin: no Rash Psych/Mental Status: Mental status NL Assessment/Plan - Problem List Patient Problems: All Active Problems GENERALIZED BODY ACHES (Acute) - Assessment Assessment: Current Active Problems Problem Status Onset GENERALIZED BODY ACHES Acute Patient is awake, alert, calm in no acute distress. Dx: Hypokalemia, Hyponatremia, SERGE, [place], HTN, Chronic anemia, GERD. - Plan Plan: Patient is improving, today more alert with less body pain. K, Na, Renal function and creatinine kinese improving. Patient will be transfered to [facility]. Will continue to monitor. Nutritional Asmnt/Malnutr-PDOC - Dietary Evaluation Malnutrition Findings (Please click <Entered> for more info): Nutritional Asmnt/Malnutrition Start: 02/01/17 15: 57 Text: Status: Active Freq: Document 02/01/17 15:57 LCHENG (Rec: 02/01/17 16:30 [email or web address]) Nutritional Asmnt/Malnutrition Patient General Information Nutritional Screening High Risk Consult Diagnosis Acute Renal Failure, Hypokalemia, Hyponatremia Pertinent Medical Hx/Surgical Hx HTN, PUD/GERD, Chronic anemia Subjective Information Consult for wt loss and loss appetite, BS>160 received. Pt from assisted living, awake during the time of visit. Spoke with family, pt usually eat lunch and dinner daily since the breakfast at assisted living is too early in the morning. Usually appetite was good, on regular diet. Appetite decreased in past 3 weeks r/t diarhhea. UBW 180lb, possible wt loss. Pt comsumed about 10% of lunch tray, one bite of burger from outside. Per notes, pt had 25% of dinner last night and 50% of breakfast today. Per RN, pt has denture. Physical exam showed no muscel wasting. Current Diet Order/ Nutrition Support Regular Pertinent Medications Nacl 100ml/hr, Protonix, Kcal, Levaquin Pertinent Labs 02/01: Na 126L, K 2.0L, Cl 81L, BUN 98H, Cr 2.0H, Glu 131H, Alb 3.6L 01/31: Glu 168/134 Nutritional Hx/Data Height 1.5 m Height (Calculated Centimeters) 149.9 Current Weight (lbs) 71.214 kg Weight (Calculated Kilograms) 71.2 Weight (Calculated Grams) 60480.0 Usual body Weight (lbs) 180 % Usual Body Weight 87 [place] Body Weight 95 % [place] Body Weight 165 Body Mass Index (BMI) 31.7 Recent Weight Change Yes Weight Status Overweight GI Symptoms GI Symptoms None Difficult in: None Food Allergies No Usual diet at home Pt was on regular diet at assisted living Skin Integrity/Comment: intact Current %PO Poor (25-49%) Estimated Nutritional Goals BEE in Kcals: Using Current wt Calories/Kcals/Kg 25-27 Kcals Calculated 7317-0123 Protein: Using Current wt Protein g/k Protein Calculated 71g monitor renal labs Fluid: ml Per MD d/t acute renal failure Nutritional Problem 2. Problem Problem Inadequant oral intake Etiology poor appetite Signs/Symptoms: PO intake 25-50% 1. Problem Problem Altered nutrition related lab values Etiology dx of acute renal failure Signs/Symptoms: BUN 98H, Cr 2.0H, Malnutrition Alert Protein-Calorie Malnutrition N/A Is there a minimum of two criteria No selected? Query Text:Check all the applicable criteria. A minimum of two criteria are recommended for diagnosis of either severe or non-severe malnutrition. Intervention/Recommendation Comments 1. Recommend Boost TID to increase nutritional intake. Explained supplement to pt family, and family is willing to take it. 2. F/U as high rist in 2-3 days, 02/03-02/04 Expected Outcomes/Goals Expected Outcomes/Goals 1. PO intake>75% to meet 100% of nutritional needs, comsume at least 1 serving of supplement per day 2. Wt to remain stable 3. Labs to improve 4. Skin to remain intact
[2017-02-02 12:17] LABS: MICROALBUMIN RANDOM RUINE 5.7 ug/mL (Not Estab.)
[2017-02-02 12:47] LABS: ANION GAP 8.7 (7.0-16.0); BUN/CREATININE RATIO 41.4; CALCIUM SERUM 9.3 mg/dL (8.6-10.3); CARBON DIOXIDE 28.5 mEq/L (21.0-31.0); CREATININE - SERUM 1.4 mg/dL (0.6-1.2); POTASSIUM SERUM 3.2 mEq/L (3.5-5.1)
--- NOTE | 2017-02-02 13:32 | Consultation ---
Consult Note - Consult Note Service Date: 02/02/17 Referring Physician: Fidencio Navarro Consult Note: PHYSICIAN Consultation Note: Date of Admission: 01/31/17 Purpose of Consultation: UTI. Chief Complaint: Patient HARDEEP GREGG was admitted to [facility] Telemetry with HYPOKALEMIA, HYPONATREMIA,ACUTE RENAL FAILURE. History of Present Illness: Patient is 71-year-old female with a past medical history of hypertension, GERD , PUD, chronic anemia brought in for diffuse body ache. On initial evaluation, her temperature was 97.7F and WBC count was 8400. Patient is receiving Levaquin. ID consult was called for further antibiotic management. Past Medical History: Hypertension, GERD, PUD, chronic anemia. Diagnoses ANEMIA, UNSPECIFIED (01/31/17) HYPO-OSMOLALITY AND HYPONATREMIA (01/31/17) HYPOKALEMIA (01/31/17) ESSENTIAL (PRIMARY) HYPERTENSION (01/31/17) ATHSCL HEART DISEASE OF [place] CORONARY ARTERY W/O ANG PCTRS (01/31/17) GASTRO-ESOPHAGEAL REFLUX DISEASE WITHOUT ESOPHAGITIS (01/31/17) ACUTE KIDNEY FAILURE, UNSPECIFIED (01/31/17) BRADYCARDIA, UNSPECIFIED (01/31/17) HYPERGLYCEMIA, UNSPECIFIED (01/31/17) Allergies Allergy/AdvReac Type Severity Reaction Status Date / Time Penicillins [PCN] Allergy Unknown Verified 02/11/16 14:41 Vital Signs Temp 98.6 F 02/02/17 11:00 Pulse 79 02/02/17 11:00 Resp 18 02/02/17 11:27 BP 91/52 02/02/17 11:00 Pulse Ox 99 02/02/17 11:00 Intake & Output 02/01/17 02/02/17 02/02/17 18:59 06:59 18:59 Intake Total 700 800 300 Output Total 1600 1500 750 Balance -900 -700 -450 Weight (lbs) 71.214 kg 71.214 kg 71.214 kg Intake: Oral 700 800 300 Output: Urine 1600 1500 750 Laboratory Results - last 24 hr 01/31/17 02/01/17 02/02/17 15:30 23:15 04:35 WBC 9.4 RBC 4.42 Hgb 13.0 Hct 38.5 L MCV 87.2 MCH 29.5 MCHC Differential 33.9 RDW 11.8 Plt Count 147 L MPV 8.5 Neutrophils % 66.6 Lymphocytes % 18.2 L Monocytes % 7.2 Eosinophils % 6.8 H Basophils % 1.2 Sodium Potassium 2.7 L* Chloride Carbon Dioxide Anion Gap BUN Creatinine Est GFR ( Amer) Est GFR (Non-Af Amer) BUN/Creatinine Ratio Glucose Hemoglobin A1c % Calcium Total Bilirubin AST ALT Alkaline Phosphatase B-Natriuretic Peptide Total Protein Albumin Globulin Albumin/Globulin Ratio Urine Creatinine 36.5 Urine Microalbumin 5.7 Microalb/Creat Ratio 15.6 02/02/17 02/02/17 02/02/17 04:35 04:35 04:35 WBC RBC Hgb Hct MCV MCH MCHC Differential RDW Plt Count MPV Neutrophils % Lymphocytes % Monocytes % Eosinophils % Basophils % Sodium 130 L Potassium 2.8 L* Chloride 94 L Carbon Dioxide 29.0 Anion Gap 9.8 BUN 67 H Creatinine 1.7 H Est GFR ( Amer) 38.2 Est GFR (Non-Af Amer) 31.6 BUN/Creatinine Ratio 39.4 Glucose 188 H D Hemoglobin A1c % 5.8 Calcium 9.0 Total Bilirubin 0.4 AST 17 ALT 9 Alkaline Phosphatase 71 B-Natriuretic Peptide 155.0 H Total Protein 6.5 Albumin 3.4 L Globulin 3.1 Albumin/Globulin Ratio 1.1 Urine Creatinine Urine Microalbumin Microalb/Creat Ratio 02/02/17 12:20 WBC RBC Hgb Hct MCV MCH MCHC Differential RDW Plt Count MPV Neutrophils % Lymphocytes % Monocytes % Eosinophils % Basophils % Sodium 130 L Potassium 3.2 L Chloride 96 L Carbon Dioxide 28.5 Anion Gap 8.7 BUN 58 H Creatinine 1.4 H Est GFR ( Amer) 47.8 Est GFR (Non-Af Amer) 39.5 BUN/Creatinine Ratio 41.4 Glucose 97 H D Hemoglobin A1c % Calcium 9.3 Total Bilirubin AST ALT Alkaline Phosphatase B-Natriuretic Peptide Total Protein Albumin Globulin Albumin/Globulin Ratio Urine Creatinine Urine Microalbumin Microalb/Creat Ratio Home Medication Medication Instructions Recorded Type Dicyclomine [Bentyl 10 Mg Cap*] 20 mg PO TID 01/31/17 History Ferrous Sulfate [Ferosul] 325 mg PO BID 01/31/17 History Furosemide [Lasix] 80 mg PO DAILY 01/31/17 History Gabapentin 800 mg PO TID 01/31/17 History Metolazone 2.5 mg PO MWF 01/31/17 History Pantoprazole Sodium 40 mg PO BID 01/31/17 History Trazodone HCl 200 mg PO HS 01/31/17 History Current Medications Generic Name Dose Route Start Last Admin Trade Name Freq PRN Reason Stop Dose Admin Sodium Chloride 1,000 mls @ 100 mls/hr 01/31/17 14:17 02/01/17 02:20 Nacl 0.9% IV 04/01/17 14:16 Infused .Q10H ANT Infusion Levofloxacin 750 mg in 150 mls @ 100 mls/hr 01/31/17 20:00 01/31/17 22:05 Levaquin Pb IV 04/01/17 19:59 Infused Q48H ANT Infusion Miscellaneous 1 ea 01/31/17 14:16 Probiotic Screen MC 04/01/17 14:15 PRN PRN PROTOCOL Pantoprazole Sodium 40 mg 01/31/17 17:00 02/02/17 08:25 Protonix PO 04/01/17 16:59 40 mg BID ANT Administration Potassium Chloride 20 meq 02/01/17 09:00 02/02/17 08:25 Klor-Con PO 04/02/17 08:59 20 meq DAILY ANT Administration Review of Systems: A 12 point ROS was reviewed with the pertinent positive and negatives noted in the HPI. 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 Family Medical History Mother History Unknown Yes Ethnicity Living Status Hx Family Hypertension Yes Hx Family Diabetes Yes Physical Exam: General: Comfortable, not in acute distress. Obese. HEENT: Head: Normocephalic. Oral cavity: Moist, pink tongue. Face: Symmetrical. Eyes: Pallor is present, no icterus. Pupils PERRLA. EOMI. Neck: Supple, no JVD, no use of X his neck muscles. Cardio: S1 and S2 within normal limits regular rhythm no murmur no gallop. Respiratory: Vesicular breath sound, no crackles, no wheezing. Abdominal: Soft, nontender, nondistended, bowel sounds present. Genital/Urinary: Deferred. Extremities: No cyanosis, no clubbing, no edema. Neurological: Alert, awake, oriented 3. Assessment: 1. UTI, ESBL Escherichia coli. Renal ultrasound showed no evidence of hydronephrosis. 2. Hypertension. 3. Electrolyte Imbalance. 4. Acute renal failure improving. Likely ATN. 5. History of PUD. Plan: Will restart Bactrim by mouth twice a day for 5 days. Signed, Yg Garcia M.D. [id number]/02/[id number]
--- NOTE | 2017-02-02 14:03 | General Progress Note ---
Subjective - Review of Systems Service Date: 02/02/17 Subjective: more alert, verbalizing Objective - Results Result Diagrams: 02/02/17 04:35 02/02/17 12:20 Recent Labs: Laboratory Last Values WBC 9.4 Th/cmm (4.8-10.8) 02/02/17 04:35 RBC 4.42 Mil/cmm (3.80-5.20) 02/02/17 04:35 Hgb 13.0 gm/dL (12-16) 02/02/17 04:35 Hct 38.5 % (41.0-60) L 02/02/17 04:35 MCV 87.2 fl (81-100) 02/02/17 04:35 MCH 29.5 pg (27.0-31.0) 02/02/17 04:35 MCHC Differential 33.9 pg (28.0-36.0) 02/02/17 04:35 RDW 11.8 % (11.5-20.0) 02/02/17 04:35 Plt Count 147 Th/cmm (150-400) L 02/02/17 04:35 MPV 8.5 fl 02/02/17 04:35 Neutrophils % 66.6 % (40.0-80.0) 02/02/17 04:35 Lymphocytes % 18.2 % (20.0-50.0) L 02/02/17 04:35 Monocytes % 7.2 % (2.0-10.0) 02/02/17 04:35 Eosinophils % 6.8 % (0.0-5.0) H 02/02/17 04:35 Basophils % 1.2 % (0.0-2.0) 02/02/17 04:35 Eos Smear Source URINE 01/31/17 15:30 Eos Smear Total Cells NONE SEEN (NONE SEEN) 01/31/17 15:30 PT 10.1 SECONDS (9.5-11.5) 01/31/17 11:30 INR 0.97 (0.5-1.4) 01/31/17 11:30 PTT (Actin FS) 24.9 SECONDS (26.0-38.0) L 01/31/17 11:30 Sodium 130 mEq/L (136-145) L 02/02/17 12:20 Potassium 3.2 mEq/L (3.5-5.1) L 02/02/17 12:20 Chloride 96 mEq/L (98-107) L 02/02/17 12:20 Carbon Dioxide 28.5 mEq/L (21.0-31.0) 02/02/17 12:20 Anion Gap 8.7 (7.0-16.0) 02/02/17 12:20 BUN 58 mg/dL (7-25) H 02/02/17 12:20 Creatinine 1.4 mg/dL (0.6-1.2) H 02/02/17 12:20 Est GFR ( Amer) 47.8 ml/min (>90) 02/02/17 12:20 Est GFR (Non-Af Amer) 39.5 ml/min 02/02/17 12:20 BUN/Creatinine Ratio 41.4 02/02/17 12:20 Glucose 97 mg/dL (40-70) H D 02/02/17 12:20 Hemoglobin A1c % 5.8 % (4.0-6.0) 02/02/17 04:35 Uric Acid 19.3 mg/dL (2.3-6.6) H 02/01/17 05:00 Calcium 9.3 mg/dL (8.6-10.3) 02/02/17 12:20 Phosphorus 2.8 mg/dL (2.5-5.0) 02/01/17 05:00 Magnesium 1.9 mg/dL (1.9-2.7) 02/01/17 05:00 Total Bilirubin 0.4 mg/dL (0.3-1.0) 02/02/17 04:35 AST 17 U/L (13-39) 02/02/17 04:35 ALT 9 U/L (7-52) 02/02/17 04:35 Alkaline Phosphatase 71 U/L (34-104) 02/02/17 04:35 Creatine Kinase 320 U/L (30-223) H 02/01/17 05:00 CK-MB (CK-2) 2.8 ng/mL (0.6-6.3) 02/01/17 05:00 Troponin I 0.03 ng/mL (0.01-0.05) 01/31/17 11:30 B-Natriuretic Peptide 155.0 pg/mL (5.0-100.0) H 02/02/17 04:35 Total Protein 6.5 gm/dL (6.0-8.3) 02/02/17 04:35 Albumin 3.4 gm/dL (3.7-5.3) L 02/02/17 04:35 Globulin 3.1 gm/dL 02/02/17 04:35 Albumin/Globulin Ratio 1.1 (1.0-1.8) 02/02/17 04:35 Triglycerides 101 mg/dL (<150) 02/01/17 05:00 Cholesterol 152 mg/dL (<200) 02/01/17 05:00 LDL Cholesterol Direct 112 mg/dL (75-193) 02/01/17 05:00 HDL Cholesterol 39 mg/dL (23-92) 02/01/17 05:00 TSH 0.72 uIU/ml (0.34-5.60) 02/01/17 05:00 Urine Source CLEAN C 01/31/17 15:30 Urine Color YELLOW 01/31/17 15:30 Urine Clarity HAZY (CLEAR) 01/31/17 15:30 Urine pH 7.0 (4.6 - 8.0) 01/31/17 15:30 Ur Specific [place] 1.010 (1.005-1.030) 01/31/17 15:30 Urine Protein NEGATIVE mg/dL (NEGATIVE) 01/31/17 15:30 Urine Glucose (UA) NEGATIVE mg/dL (NEGATIVE) 01/31/17 15:30 Urine Ketones NEGATIVE mg/dL (NEGATIVE) 01/31/17 15:30 Urine Blood NEGATIVE (NEGATIVE) 01/31/17 15:30 Urine Nitrate NEGATIVE (NEGATIVE) 01/31/17 15:30 Urine Bilirubin NEGATIVE (NEGATIVE) 01/31/17 15:30 Urine Urobilinogen 0.2 E.U./dL (0.2 - 1.0) 01/31/17 15:30 Ur Leukocyte Esterase LARGE (NEGATIVE) H 01/31/17 15:30 Urine RBC 0-2 /hpf (0-5) 01/31/17 15:30 Urine WBC 25-50 /hpf (0-5) H 01/31/17 15:30 Ur Epithelial Cells FEW /lpf (FEW) 01/31/17 15:30 Urine Bacteria MANY /hpf (NONE SEEN) 01/31/17 15:30 Ur Random Sodium 69 mmol/L 01/31/17 15:30 Urine Creatinine 36.5 mg/dl (Not Estab.) 01/31/17 15:30 Urine Microalbumin 5.7 ug/mL (Not Estab.) 01/31/17 15:30 Microalb/Creat Ratio 15.6 01/31/17 15:30 - Physical Exam Vitals and I&O: Vital Signs Temp 98.6 F 02/02/17 11:00 Pulse 79 02/02/17 11:00 Resp 18 02/02/17 11:27 BP 91/52 02/02/17 11:00 Pulse Ox 99 02/02/17 11:00 Intake & Output 02/01/17 02/02/17 02/02/17 18:59 06:59 18:59 Intake Total 700 800 300 Output Total 1600 1500 750 Balance -900 -700 -450 Weight (lbs) 71.214 kg 71.214 kg 71.214 kg Intake: Oral 700 800 300 Output: Urine 1600 1500 750 Active Medications: Current Medications Sodium Chloride (Nacl 0.9%) 1,000 mls @ 100 mls/hr IV .Q10H [facility] Stop: 04/01/17 14:16 Last Infusion: 02/01/17 02:20 Dose: Infused Levofloxacin (Levaquin Pb) 750 mg in 150 mls @ 100 mls/hr IV Q48H [facility] Stop: 04/01/17 19:59 Last Infusion: 01/31/17 22:05 Dose: Infused Miscellaneous (Probiotic Screen) 1 ea MC PRN PRN PRN Reason: PROTOCOL Stop: 04/01/17 14:15 Pantoprazole Sodium (Protonix) 40 mg PO BID [facility] Stop: 04/01/17 16:59 Last Admin: 02/02/17 08:25 Dose: 40 mg Potassium Chloride (Klor-Con) 20 meq PO DAILY ANT Stop: 04/02/17 08:59 Last Admin: 02/02/17 08:25 Dose: 20 meq Trimethoprim/Sulfamethoxazole (Bactrim Ds) 1 tab PO BID [facility] Stop: 04/03/17 16:59 General: Alert, Oriented x3, No acute distress HEENT: Atraumatic, PERRLA, EOMI, Mucous membr. moist/pink Neck: Supple, +2 carotid pulse wo bruit Cardiovascular: Regular rate, Normal S1, Normal S2, Other (Low BP) Lungs: Other (decreased BS) Abdomen: Bowel sounds, Soft Extremities: Other (No edema, ), no Edema Neurological: Sensation intact, Other (Unstable gait) Skin: no Rash Psych/Mental Status: Mood NL Assessment/Plan - Problem List Patient Problems: All Active Problems GENERALIZED BODY ACHES (Acute) - Assessment Assessment: Electrolyte abnormalities Cx UTI SERGE Bradycardia 2nd to hypokalemia Ess HTN Anemia CD GERD - Plan Plan: Lab - Result Diagrams 02/01/17 05:00 02/01/17 05:00 Current Medications Sodium Chloride (Nacl 0.9%) 1,000 mls @ 100 mls/hr IV .Q10H ANT Stop: 04/01/17 14:16 Last Infusion: 02/01/17 02:20 Dose: Infused Levofloxacin (Levaquin Pb) 750 mg in 150 mls @ 100 mls/hr IV Q48H ANT Stop: 04/01/17 19:59 Last Infusion: 01/31/17 22:05 Dose: Infused Miscellaneous (Probiotic Screen) 1 ea MC PRN PRN PRN Reason: PROTOCOL Stop: 04/01/17 14:15 Pantoprazole Sodium (Protonix) 40 mg PO BID ANT Stop: 04/01/17 16:59 Last Admin: 02/01/17 09:00 Dose: 40 mg Potassium Chloride (Klor-Con) 20 meq PO DAILY ANT Stop: 04/02/17 08:59 Last Admin: 02/01/17 09:00 Dose: 20 meq Potassium Chloride (Klor-Con) 40 meq PO X1 ONE Stop: 02/01/17 16:01 Lab - Result Diagrams 02/02/17 04:35 02/02/17 12:20 Kidney fnc gradually improvimg Na up to 130, K to 3.2 started on Bactrim, f/u cr. closely f/u electrolytes, urine C/S Nutritional Asmnt/Malnutr-PDOC - Dietary Evaluation Malnutrition Findings (Please click <Entered> for more info): Nutritional Asmnt/Malnutrition Start: 02/01/17 15: 57 Text: Status: Active Freq: Document 02/01/17 15:57 VICTORIA (Rec: 02/01/17 16:30 LCHENG [id number]) Nutritional Asmnt/Malnutrition Patient General Information Nutritional Screening High Risk Consult Diagnosis Acute Renal Failure, Hypokalemia, Hyponatremia Pertinent Medical Hx/Surgical Hx HTN, PUD/GERD, Chronic anemia Subjective Information Consult for wt loss and loss appetite, BS>160 received. Pt from assisted living, awake during the time of visit. Spoke with family, pt usually eat lunch and dinner daily since the breakfast at assisted living is too early in the morning. Usually appetite was good, on regular diet. Appetite decreased in past 3 weeks r/t diarhhea. UBW 180lb, possible wt loss. Pt comsumed about 10% of lunch tray, one bite of burger from outside. Per notes, pt had 25% of dinner last night and 50% of breakfast today. Per RN, pt has denture. Physical exam showed no muscel wasting. Current Diet Order/ Nutrition Support Regular Pertinent Medications Nacl 100ml/hr, Protonix, Kcal, Levaquin Pertinent Labs 02/01: Na 126L, K 2.0L, Cl 81L, BUN 98H, Cr 2.0H, Glu 131H, Alb 3.6L 01/31: Glu 168/134 Nutritional Hx/Data Height 1.5 m Height (Calculated Centimeters) 149.9 Current Weight (lbs) 71.214 kg Weight (Calculated Kilograms) 71.2 Weight (Calculated Grams) 83802.0 Usual body Weight (lbs) 180 % Usual Body Weight 87 [place] Body Weight 95 % [place] Body Weight 165 Body Mass Index (BMI) 31.7 Recent Weight Change Yes Weight Status Overweight GI Symptoms GI Symptoms None Difficult in: None Food Allergies No Usual diet at home Pt was on regular diet at assisted living Skin Integrity/Comment: intact Current %PO Poor (25-49%) Estimated Nutritional Goals BEE in Kcals: Using Current wt Calories/Kcals/Kg 25-27 Kcals Calculated 8667-5166 Protein: Using Current wt Protein g/k Protein Calculated 71g monitor renal labs Fluid: ml Per MD d/t acute renal failure Nutritional Problem 2. Problem Problem Inadequant oral intake Etiology poor appetite Signs/Symptoms: PO intake 25-50% 1. Problem Problem Altered nutrition related lab values Etiology dx of acute renal failure Signs/Symptoms: BUN 98H, Cr 2.0H, Malnutrition Alert Protein-Calorie Malnutrition N/A Is there a minimum of two criteria No selected? Query Text:Check all the applicable criteria. A minimum of two criteria are recommended for diagnosis of either severe or non-severe malnutrition. Intervention/Recommendation Comments 1. Recommend Boost TID to increase nutritional intake. Explained supplement to pt family, and family is willing to take it. 2. F/U as high rist in 2-3 days, 02/03-02/04 Expected Outcomes/Goals Expected Outcomes/Goals 1. PO intake>75% to meet 100% of nutritional needs, comsume at least 1 serving of supplement per day 2. Wt to remain stable 3. Labs to improve 4. Skin to remain intact
[2017-02-02] MEDS: Sulfamethoxazole/TMP 800/160mg Tab PO SCH (16:25)
[2017-02-02] MEDS: Sodium Chloride 0.9% 1,000 ML IV SCH (21:04)
[2017-02-03 06:09] LABS: % BASOPHILS 0.5 % (0.0-2.0); % EOSINOPHILS 4.8 % (0.0-5.0); % MONOCYTES 7.3 % (2.0-10.0); % NEUTROPHILS 66.4 % (40.0-80.0); HEMATOCRIT 40.3 % (41.0-60); HEMOGLOBIN 13.3 gm/dL (12-16); MEAN CELL VOLUME 88.7 fl (81-100); MEAN CORPUSCULAR HEMOGLOBIN 29.4 pg (27.0-31.0); MEAN CORPUSCULAR HGB CONC 33.1 pg (28.0-36.0); MEAN PLATELET VOLUME 8.5 fl; PLATELET COUNT 156 Th/cmm (150-400); RED BLOOD COUNT 4.54 Mil/cmm (3.80-5.20); WHITE BLOOD COUNT 8.8 Th/cmm (4.8-10.8)
[2017-02-03 06:44] LABS: ALB/GLOB RATIO 1.1 (1.0-1.8); ANION GAP 12.6 (7.0-16.0); BILIRUBIN,TOTAL 0.4 mg/dL (0.3-1.0); BUN/CREATININE RATIO 27.1; CALCIUM SERUM 9.2 mg/dL (8.6-10.3); CARBON DIOXIDE 23.6 mEq/L (21.0-31.0); CREATININE - SERUM 1.4 mg/dL (0.6-1.2); POTASSIUM SERUM 3.2 mEq/L (3.5-5.1)
[2017-02-03] MEDS: Potassium Chloride 20 mEq ER Tab PO SCH (09:35)
[2017-02-03] MEDS: Sulfamethoxazole/TMP 800/160mg Tab PO SCH ×2 (09:35→18:15)
[2017-02-03] MEDS: Pantoprazole 40 mg EC Tab PO SCH ×2 (09:35→18:14)
[2017-02-03] MEDS ORDERED: KCL 20mEq/100mL Premix 20 MEQ/100 ML PIGGYBACK IV ONE (10:56)
--- NOTE | 2017-02-03 11:20 | General Progress Note ---
Subjective - Review of Systems Service Date: 02/03/17 Subjective: I feel better Objective - Results Result Diagrams: 02/03/17 05:38 02/03/17 05:38 Recent Labs: Laboratory Last Values WBC 8.8 Th/cmm (4.8-10.8) 02/03/17 05:38 RBC 4.54 Mil/cmm (3.80-5.20) 02/03/17 05:38 Hgb 13.3 gm/dL (12-16) 02/03/17 05:38 Hct 40.3 % (41.0-60) L 02/03/17 05:38 MCV 88.7 fl (81-100) 02/03/17 05:38 MCH 29.4 pg (27.0-31.0) 02/03/17 05:38 MCHC Differential 33.1 pg (28.0-36.0) 02/03/17 05:38 RDW 12.0 % (11.5-20.0) 02/03/17 05:38 Plt Count 156 Th/cmm (150-400) 02/03/17 05:38 MPV 8.5 fl 02/03/17 05:38 Neutrophils % 66.4 % (40.0-80.0) 02/03/17 05:38 Lymphocytes % 21.0 % (20.0-50.0) 02/03/17 05:38 Monocytes % 7.3 % (2.0-10.0) 02/03/17 05:38 Eosinophils % 4.8 % (0.0-5.0) 02/03/17 05:38 Basophils % 0.5 % (0.0-2.0) 02/03/17 05:38 Eos Smear Source URINE 01/31/17 15:30 Eos Smear Total Cells NONE SEEN (NONE SEEN) 01/31/17 15:30 PT 10.1 SECONDS (9.5-11.5) 01/31/17 11:30 INR 0.97 (0.5-1.4) 01/31/17 11:30 PTT (Actin FS) 24.9 SECONDS (26.0-38.0) L 01/31/17 11:30 Sodium 132 mEq/L (136-145) L 02/03/17 05:38 Potassium 3.2 mEq/L (3.5-5.1) L 02/03/17 05:38 Chloride 99 mEq/L (98-107) 02/03/17 05:38 Carbon Dioxide 23.6 mEq/L (21.0-31.0) 02/03/17 05:38 Anion Gap 12.6 (7.0-16.0) 02/03/17 05:38 BUN 38 mg/dL (7-25) H 02/03/17 05:38 Creatinine 1.4 mg/dL (0.6-1.2) H 02/03/17 05:38 Est GFR ( Amer) 47.8 ml/min (>90) 02/03/17 05:38 Est GFR (Non-Af Amer) 39.5 ml/min 02/03/17 05:38 BUN/Creatinine Ratio 27.1 02/03/17 05:38 Glucose 122 mg/dL (40-70) H D 02/03/17 05:38 Hemoglobin A1c % 5.8 % (4.0-6.0) 02/02/17 04:35 Plasma/Ser Osmolality 300 mOsmol/kg (280-301) 01/31/17 11:30 Uric Acid 19.3 mg/dL (2.3-6.6) H 02/01/17 05:00 Calcium 9.2 mg/dL (8.6-10.3) 02/03/17 05:38 Phosphorus 2.8 mg/dL (2.5-5.0) 02/01/17 05:00 Magnesium 1.9 mg/dL (1.9-2.7) 02/01/17 05:00 Total Bilirubin 0.4 mg/dL (0.3-1.0) 02/03/17 05:38 AST 16 U/L (13-39) 02/03/17 05:38 ALT 8 U/L (7-52) 02/03/17 05:38 Alkaline Phosphatase 71 U/L (34-104) 02/03/17 05:38 Creatine Kinase 138 U/L (30-223) 02/03/17 05:38 CK-MB (CK-2) 2.8 ng/mL (0.6-6.3) 02/01/17 05:00 Troponin I 0.03 ng/mL (0.01-0.05) 01/31/17 11:30 B-Natriuretic Peptide 155.0 pg/mL (5.0-100.0) H 02/02/17 04:35 Total Protein 6.6 gm/dL (6.0-8.3) 02/03/17 05:38 Albumin 3.5 gm/dL (3.7-5.3) L 02/03/17 05:38 Globulin 3.1 gm/dL 02/03/17 05:38 Albumin/Globulin Ratio 1.1 (1.0-1.8) 02/03/17 05:38 Triglycerides 101 mg/dL (<150) 02/01/17 05:00 Cholesterol 152 mg/dL (<200) 02/01/17 05:00 LDL Cholesterol Direct 112 mg/dL (75-193) 02/01/17 05:00 HDL Cholesterol 39 mg/dL (23-92) 02/01/17 05:00 TSH 0.72 uIU/ml (0.34-5.60) 02/01/17 05:00 Urine Source CLEAN C 01/31/17 15:30 Urine Color YELLOW 01/31/17 15:30 Urine Clarity HAZY (CLEAR) 01/31/17 15:30 Urine pH 7.0 (4.6 - 8.0) 01/31/17 15:30 Ur Specific [place] 1.010 (1.005-1.030) 01/31/17 15:30 Urine Protein NEGATIVE mg/dL (NEGATIVE) 01/31/17 15:30 Urine Glucose (UA) NEGATIVE mg/dL (NEGATIVE) 01/31/17 15:30 Urine Ketones NEGATIVE mg/dL (NEGATIVE) 01/31/17 15:30 Urine Blood NEGATIVE (NEGATIVE) 01/31/17 15:30 Urine Nitrate NEGATIVE (NEGATIVE) 01/31/17 15:30 Urine Bilirubin NEGATIVE (NEGATIVE) 01/31/17 15:30 Urine Urobilinogen 0.2 E.U./dL (0.2 - 1.0) 01/31/17 15:30 Ur Leukocyte Esterase LARGE (NEGATIVE) H 01/31/17 15:30 Urine RBC 0-2 /hpf (0-5) 01/31/17 15:30 Urine WBC 25-50 /hpf (0-5) H 01/31/17 15:30 Ur Epithelial Cells FEW /lpf (FEW) 01/31/17 15:30 Urine Bacteria MANY /hpf (NONE SEEN) 01/31/17 15:30 Urine Osmolality 299 mOsmol/kg 01/31/17 15:30 Ur Random Sodium 69 mmol/L 01/31/17 15:30 Urine Creatinine 36.5 mg/dl (Not Estab.) 01/31/17 15:30 Urine Microalbumin 5.7 ug/mL (Not Estab.) 01/31/17 15:30 Microalb/Creat Ratio 15.6 01/31/17 15:30 - Physical Exam Vitals and I&O: Vital Signs Temp 97.8 F 02/03/17 08:24 Pulse 67 02/03/17 08:24 Resp 16 02/03/17 08:24 BP 124/67 02/03/17 08:24 Pulse Ox 98 02/03/17 08:24 Intake & Output 02/02/17 02/03/17 02/03/17 18:59 06:59 18:59 Intake Total 1250 500 Output Total 1950 1400 Balance -700 -900 Weight (lbs) 71.412 kg 87.543 kg Intake: Oral 1250 500 Output: Urine 1950 1400 Other: # Bowel Movements 1 1 Stool Characteristics Soft Formed Formed Green Active Medications: Current Medications Acetaminophen (Tylenol) 650 mg PO Q6H PRN PRN Reason: Pain (MILD) Stop: 04/03/17 16:29 Last Admin: 02/03/17 09:35 Dose: 650 mg Sodium Chloride (Nacl 0.9%) 1,000 mls @ 100 mls/hr IV .Q10H [facility] Stop: 04/01/17 14:16 Last Admin: 02/02/17 21:04 Dose: 100 mls/hr Potassium Chloride 20 meq/ (Sodium Chloride) 260 mls @ 125 mls/hr IV ONCE ONE Stop: 02/03/17 14:04 Miscellaneous (Probiotic Screen) 1 ea MC PRN PRN PRN Reason: PROTOCOL Stop: 04/01/17 14:15 Pantoprazole Sodium (Protonix) 40 mg PO BID [facility] Stop: 04/01/17 16:59 Last Admin: 02/03/17 09:35 Dose: 40 mg Potassium Chloride (Klor-Con) 20 meq PO DAILY [facility] Stop: 04/02/17 08:59 Last Admin: 02/03/17 09:35 Dose: 20 meq Tramadol HCl (Ultram) 50 mg PO Q6HR PRN PRN Reason: Pain (Moderate) Stop: 04/03/17 16:27 Last Admin: 02/03/17 05:32 Dose: 50 mg Trimethoprim/Sulfamethoxazole (Bactrim Ds) 1 tab PO BID ANT Stop: 04/03/17 16:59 Last Admin: 02/03/17 09:35 Dose: 1 tab General: Alert, Oriented x3, No acute distress HEENT: Atraumatic, PERRLA, EOMI, Mucous membr. moist/pink Neck: Supple, +2 carotid pulse wo bruit Cardiovascular: Regular rate, Normal S1, Normal S2, Other (Low BP) Lungs: Other (decreased BS) Abdomen: Bowel sounds, Soft Extremities: Other (No edema, ), no Edema Neurological: Sensation intact, Other (Unstable gait) Skin: no Rash Psych/Mental Status: Mood NL Assessment/Plan - Problem List Patient Problems: All Active Problems GENERALIZED BODY ACHES (Acute) - Assessment Assessment: Current Active Problems Problem Status Onset GENERALIZED BODY ACHES Acute Patient is awake, alert, calm in no acute distress. Dx: Hypokalemia, Hyponatremia, SERGE, [place], HTN, Chronic anemia, GERD. - Plan Plan: Patient is improving, today more alert with less body pain. K, Na, Renal function and creatinine kinese improving. Patient will be transfered to [facility]. Will continue to monitor. Nutritional Asmnt/Malnutr-PDOC - Dietary Evaluation Malnutrition Findings (Please click <Entered> for more info): Nutritional Asmnt/Malnutrition Start: 02/01/17 15: 57 Text: Status: Active Freq: Document 02/01/17 15:57 LCHENG (Rec: 02/01/17 16:30 [facility] [email or web address]) Nutritional Asmnt/Malnutrition Patient General Information Nutritional Screening High Risk Consult Diagnosis Acute Renal Failure, Hypokalemia, Hyponatremia Pertinent Medical Hx/Surgical Hx HTN, PUD/GERD, Chronic anemia Subjective Information Consult for wt loss and loss appetite, BS>160 received. Pt from assisted living, awake during the time of visit. Spoke with family, pt usually eat lunch and dinner daily since the breakfast at assisted living is too early in the morning. Usually appetite was good, on regular diet. Appetite decreased in past 3 weeks r/t diarhhea. UBW 180lb, possible wt loss. Pt comsumed about 10% of lunch tray, one bite of burger from outside. Per notes, pt had 25% of dinner last night and 50% of breakfast today. Per RN, pt has denture. Physical exam showed no muscel wasting. Current Diet Order/ Nutrition Support Regular Pertinent Medications Nacl 100ml/hr, Protonix, Kcal, Levaquin Pertinent Labs 02/01: Na 126L, K 2.0L, Cl 81L, BUN 98H, Cr 2.0H, Glu 131H, Alb 3.6L 01/31: Glu 168/134 Nutritional Hx/Data Height 1.5 m Height (Calculated Centimeters) 149.9 Current Weight (lbs) 71.214 kg Weight (Calculated Kilograms) 71.2 Weight (Calculated Grams) 14633.0 Usual body Weight (lbs) 180 % Usual Body Weight 87 [place] Body Weight 95 % [place] Body Weight 165 Body Mass Index (BMI) 31.7 Recent Weight Change Yes Weight Status Overweight GI Symptoms GI Symptoms None Difficult in: None Food Allergies No Usual diet at home Pt was on regular diet at assisted living Skin Integrity/Comment: intact Current %PO Poor (25-49%) Estimated Nutritional Goals BEE in Kcals: Using Current wt Calories/Kcals/Kg 25-27 Kcals Calculated 4364-7868 Protein: Using Current wt Protein g/k Protein Calculated 71g monitor renal labs Fluid: ml Per MD d/t acute renal failure Nutritional Problem 2. Problem Problem Inadequant oral intake Etiology poor appetite Signs/Symptoms: PO intake 25-50% 1. Problem Problem Altered nutrition related lab values Etiology dx of acute renal failure Signs/Symptoms: BUN 98H, Cr 2.0H, Malnutrition Alert Protein-Calorie Malnutrition N/A Is there a minimum of two criteria No selected? Query Text:Check all the applicable criteria. A minimum of two criteria are recommended for diagnosis of either severe or non-severe malnutrition. Intervention/Recommendation Comments 1. Recommend Boost TID to increase nutritional intake. Explained supplement to pt family, and family is willing to take it. 2. F/U as high rist in 2-3 days, 02/03-02/04 Expected Outcomes/Goals Expected Outcomes/Goals 1. PO intake>75% to meet 100% of nutritional needs, comsume at least 1 serving of supplement per day 2. Wt to remain stable 3. Labs to improve 4. Skin to remain intact
--- NOTE | 2017-02-03 13:25 | Infectious Disease Prog Note ---
Infectious Disease Subjective - Review of Systems Service Date: 02/03/17 Subjective: There is no new change. No fever. Infectious Disease Objective - Results Result Diagrams: 02/03/17 05:38 02/03/17 05:38 Recent Labs: Laboratory Last Values WBC 8.8 Th/cmm (4.8-10.8) 02/03/17 05:38 RBC 4.54 Mil/cmm (3.80-5.20) 02/03/17 05:38 Hgb 13.3 gm/dL (12-16) 02/03/17 05:38 Hct 40.3 % (41.0-60) L 02/03/17 05:38 MCV 88.7 fl (81-100) 02/03/17 05:38 MCH 29.4 pg (27.0-31.0) 02/03/17 05:38 MCHC Differential 33.1 pg (28.0-36.0) 02/03/17 05:38 RDW 12.0 % (11.5-20.0) 02/03/17 05:38 Plt Count 156 Th/cmm (150-400) 02/03/17 05:38 MPV 8.5 fl 02/03/17 05:38 Neutrophils % 66.4 % (40.0-80.0) 02/03/17 05:38 Lymphocytes % 21.0 % (20.0-50.0) 02/03/17 05:38 Monocytes % 7.3 % (2.0-10.0) 02/03/17 05:38 Eosinophils % 4.8 % (0.0-5.0) 02/03/17 05:38 Basophils % 0.5 % (0.0-2.0) 02/03/17 05:38 Eos Smear Source URINE 01/31/17 15:30 Eos Smear Total Cells NONE SEEN (NONE SEEN) 01/31/17 15:30 PT 10.1 SECONDS (9.5-11.5) 01/31/17 11:30 INR 0.97 (0.5-1.4) 01/31/17 11:30 PTT (Actin FS) 24.9 SECONDS (26.0-38.0) L 01/31/17 11:30 Sodium 132 mEq/L (136-145) L 02/03/17 05:38 Potassium 3.2 mEq/L (3.5-5.1) L 02/03/17 05:38 Chloride 99 mEq/L (98-107) 02/03/17 05:38 Carbon Dioxide 23.6 mEq/L (21.0-31.0) 02/03/17 05:38 Anion Gap 12.6 (7.0-16.0) 02/03/17 05:38 BUN 38 mg/dL (7-25) H 02/03/17 05:38 Creatinine 1.4 mg/dL (0.6-1.2) H 02/03/17 05:38 Est GFR ( Amer) 47.8 ml/min (>90) 02/03/17 05:38 Est GFR (Non-Af Amer) 39.5 ml/min 02/03/17 05:38 BUN/Creatinine Ratio 27.1 02/03/17 05:38 Glucose 122 mg/dL (40-70) H D 02/03/17 05:38 Hemoglobin A1c % 5.8 % (4.0-6.0) 02/02/17 04:35 Plasma/Ser Osmolality 300 mOsmol/kg (280-301) 01/31/17 11:30 Uric Acid 19.3 mg/dL (2.3-6.6) H 02/01/17 05:00 Calcium 9.2 mg/dL (8.6-10.3) 02/03/17 05:38 Phosphorus 2.8 mg/dL (2.5-5.0) 02/01/17 05:00 Magnesium 1.9 mg/dL (1.9-2.7) 02/01/17 05:00 Total Bilirubin 0.4 mg/dL (0.3-1.0) 02/03/17 05:38 AST 16 U/L (13-39) 02/03/17 05:38 ALT 8 U/L (7-52) 02/03/17 05:38 Alkaline Phosphatase 71 U/L (34-104) 02/03/17 05:38 Creatine Kinase 138 U/L (30-223) 02/03/17 05:38 CK-MB (CK-2) 2.8 ng/mL (0.6-6.3) 02/01/17 05:00 Troponin I 0.03 ng/mL (0.01-0.05) 01/31/17 11:30 B-Natriuretic Peptide 155.0 pg/mL (5.0-100.0) H 02/02/17 04:35 Total Protein 6.6 gm/dL (6.0-8.3) 02/03/17 05:38 Albumin 3.5 gm/dL (3.7-5.3) L 02/03/17 05:38 Globulin 3.1 gm/dL 02/03/17 05:38 Albumin/Globulin Ratio 1.1 (1.0-1.8) 02/03/17 05:38 Triglycerides 101 mg/dL (<150) 02/01/17 05:00 Cholesterol 152 mg/dL (<200) 02/01/17 05:00 LDL Cholesterol Direct 112 mg/dL (75-193) 02/01/17 05:00 HDL Cholesterol 39 mg/dL (23-92) 02/01/17 05:00 TSH 0.72 uIU/ml (0.34-5.60) 02/01/17 05:00 Urine Source CLEAN C 01/31/17 15:30 Urine Color YELLOW 01/31/17 15:30 Urine Clarity HAZY (CLEAR) 01/31/17 15:30 Urine pH 7.0 (4.6 - 8.0) 01/31/17 15:30 Ur Specific [place] 1.010 (1.005-1.030) 01/31/17 15:30 Urine Protein NEGATIVE mg/dL (NEGATIVE) 01/31/17 15:30 Urine Glucose (UA) NEGATIVE mg/dL (NEGATIVE) 01/31/17 15:30 Urine Ketones NEGATIVE mg/dL (NEGATIVE) 01/31/17 15:30 Urine Blood NEGATIVE (NEGATIVE) 01/31/17 15:30 Urine Nitrate NEGATIVE (NEGATIVE) 01/31/17 15:30 Urine Bilirubin NEGATIVE (NEGATIVE) 01/31/17 15:30 Urine Urobilinogen 0.2 E.U./dL (0.2 - 1.0) 01/31/17 15:30 Ur Leukocyte Esterase LARGE (NEGATIVE) H 01/31/17 15:30 Urine RBC 0-2 /hpf (0-5) 01/31/17 15:30 Urine WBC 25-50 /hpf (0-5) H 01/31/17 15:30 Ur Epithelial Cells FEW /lpf (FEW) 01/31/17 15:30 Urine Bacteria MANY /hpf (NONE SEEN) 01/31/17 15:30 Urine Myoglobin 5 ng/mL (0-13) 01/31/17 15:30 Urine Osmolality 299 mOsmol/kg 01/31/17 15:30 Ur Random Sodium 69 mmol/L 01/31/17 15:30 Urine Creatinine 36.5 mg/dl (Not Estab.) 01/31/17 15:30 Urine Microalbumin 5.7 ug/mL (Not Estab.) 01/31/17 15:30 Microalb/Creat Ratio 15.6 01/31/17 15:30 - Physical Exam Vitals and I&O: Vital Signs Temp 97.8 F 02/03/17 08:24 Pulse 67 02/03/17 08:24 Resp 16 02/03/17 08:24 BP 124/67 02/03/17 08:24 Pulse Ox 98 02/03/17 08:24 Intake & Output 02/02/17 02/03/17 02/03/17 18:59 06:59 18:59 Intake Total 1250 500 Output Total 1950 1400 Balance -700 -900 Weight (lbs) 71.412 kg 87.543 kg Intake: Oral 1250 500 Output: Urine 1950 1400 Other: # Bowel Movements 1 1 Stool Characteristics Soft Formed Formed Green Active Medications: Current Medications Acetaminophen (Tylenol) 650 mg PO Q6H PRN PRN Reason: Pain (MILD) Stop: 04/03/17 16:29 Last Admin: 02/03/17 09:35 Dose: 650 mg Sodium Chloride (Nacl 0.9%) 1,000 mls @ 100 mls/hr IV .Q10H ANT Stop: 04/01/17 14:16 Last Admin: 02/02/17 21:04 Dose: 100 mls/hr Potassium Chloride 20 meq/ (Sodium Chloride) 260 mls @ 125 mls/hr IV ONCE ONE Stop: 02/03/17 14:04 Last Admin: 02/03/17 13:08 Dose: 125 mls/hr Miscellaneous (Probiotic Screen) 1 ea MC PRN PRN PRN Reason: PROTOCOL Stop: 04/01/17 14:15 Pantoprazole Sodium (Protonix) 40 mg PO BID [facility] Stop: 04/01/17 16:59 Last Admin: 02/03/17 09:35 Dose: 40 mg Potassium Chloride (Klor-Con) 20 meq PO DAILY [facility] Stop: 04/02/17 08:59 Last Admin: 02/03/17 09:35 Dose: 20 meq Tramadol HCl (Ultram) 50 mg PO Q6HR PRN PRN Reason: Pain (Moderate) Stop: 04/03/17 16:27 Last Admin: 02/03/17 05:32 Dose: 50 mg Trimethoprim/Sulfamethoxazole (Bactrim Ds) 1 tab PO BID ANT Stop: 04/03/17 16:59 Last Admin: 02/03/17 09:35 Dose: 1 tab General: no acute distress, well developed, well nourished, cachectic HEENT: atraumatic, normocephalic, PERRLA, EOMI, moist mucous membrane Neck: supple, no thyromegaly Cardiovascular: S1S2, regular Lungs: clear to auscultation bilaterally, clear to percussion, crackles Abdomen: soft, no tender, no distended Extremities: no cyanosis, no clubbing, no edema Neurological: awake, alert, oriented Skin: intact Infectious Disease Assmt/Plan - Problem List Patient Problems: All Active Problems GENERALIZED BODY ACHES (Acute) - Assessment Assessment: 1. UTI, ESBL Escherichia coli. Renal ultrasound showed no evidence of hydronephrosis. 2. Hypertension. 3. Electrolyte Imbalance. 4. Acute renal failure improving. Likely ATN. 5. History of PUD. - Plan Plan: Continue bactrim ds po bod for 5 days. dc planning. Nutritional Asmnt/Malnutr-PDOC - Dietary Evaluation Malnutrition Findings (Please click <Entered> for more info): Nutritional Asmnt/Malnutrition Start: 02/01/17 15: 57 Text: Status: Active Freq: Document 02/01/17 15:57 LCHENG (Rec: 02/01/17 16:30 LCHENG [email or web address]) Nutritional Asmnt/Malnutrition Patient General Information Nutritional Screening High Risk Consult Diagnosis Acute Renal Failure, Hypokalemia, Hyponatremia Pertinent Medical Hx/Surgical Hx HTN, PUD/GERD, Chronic anemia Subjective Information Consult for wt loss and loss appetite, BS>160 received. Pt from assisted living, awake during the time of visit. Spoke with family, pt usually eat lunch and dinner daily since the breakfast at assisted living is too early in the morning. Usually appetite was good, on regular diet. Appetite decreased in past 3 weeks r/t diarhhea. UBW 180lb, possible wt loss. Pt comsumed about 10% of lunch tray, one bite of burger from outside. Per notes, pt had 25% of dinner last night and 50% of breakfast today. Per RN, pt has denture. Physical exam showed no muscel wasting. Current Diet Order/ Nutrition Support Regular Pertinent Medications Nacl 100ml/hr, Protonix, Kcal, Levaquin Pertinent Labs 02/01: Na 126L, K 2.0L, Cl 81L, BUN 98H, Cr 2.0H, Glu 131H, Alb 3.6L 01/31: Glu 168/134 Nutritional Hx/Data Height 1.5 m Height (Calculated Centimeters) 149.9 Current Weight (lbs) 71.214 kg Weight (Calculated Kilograms) 71.2 Weight (Calculated Grams) 69671.0 Usual body Weight (lbs) 180 % Usual Body Weight 87 [place] Body Weight 95 % [place] Body Weight 165 Body Mass Index (BMI) 31.7 Recent Weight Change Yes Weight Status Overweight GI Symptoms GI Symptoms None Difficult in: None Food Allergies No Usual diet at home Pt was on regular diet at assisted living Skin Integrity/Comment: intact Current %PO Poor (25-49%) Estimated Nutritional Goals BEE in Kcals: Using Current wt Calories/Kcals/Kg 25-27 Kcals Calculated 7144-5254 Protein: Using Current wt Protein g/k Protein Calculated 71g monitor renal labs Fluid: ml Per MD d/t acute renal failure Nutritional Problem 2. Problem Problem Inadequant oral intake Etiology poor appetite Signs/Symptoms: PO intake 25-50% 1. Problem Problem Altered nutrition related lab values Etiology dx of acute renal failure Signs/Symptoms: BUN 98H, Cr 2.0H, Malnutrition Alert Protein-Calorie Malnutrition N/A Is there a minimum of two criteria No selected? Query Text:Check all the applicable criteria. A minimum of two criteria are recommended for diagnosis of either severe or non-severe malnutrition. Intervention/Recommendation Comments 1. Recommend Boost TID to increase nutritional intake. Explained supplement to pt family, and family is willing to take it. 2. F/U as high rist in 2-3 days, 02/03-02/04 Expected Outcomes/Goals Expected Outcomes/Goals 1. PO intake>75% to meet 100% of nutritional needs, comsume at least 1 serving of supplement per day 2. Wt to remain stable 3. Labs to improve 4. Skin to remain intact
--- NOTE | 2017-02-03 15:18 | General Progress Note ---
Subjective - Review of Systems Service Date: 02/03/17 Subjective: more alert, verbalizing, eager to go home Objective - Results Result Diagrams: 02/03/17 05:38 02/03/17 05:38 Recent Labs: Laboratory Last Values WBC 8.8 Th/cmm (4.8-10.8) 02/03/17 05:38 RBC 4.54 Mil/cmm (3.80-5.20) 02/03/17 05:38 Hgb 13.3 gm/dL (12-16) 02/03/17 05:38 Hct 40.3 % (41.0-60) L 02/03/17 05:38 MCV 88.7 fl (81-100) 02/03/17 05:38 MCH 29.4 pg (27.0-31.0) 02/03/17 05:38 MCHC Differential 33.1 pg (28.0-36.0) 02/03/17 05:38 RDW 12.0 % (11.5-20.0) 02/03/17 05:38 Plt Count 156 Th/cmm (150-400) 02/03/17 05:38 MPV 8.5 fl 02/03/17 05:38 Neutrophils % 66.4 % (40.0-80.0) 02/03/17 05:38 Lymphocytes % 21.0 % (20.0-50.0) 02/03/17 05:38 Monocytes % 7.3 % (2.0-10.0) 02/03/17 05:38 Eosinophils % 4.8 % (0.0-5.0) 02/03/17 05:38 Basophils % 0.5 % (0.0-2.0) 02/03/17 05:38 Eos Smear Source URINE 01/31/17 15:30 Eos Smear Total Cells NONE SEEN (NONE SEEN) 01/31/17 15:30 PT 10.1 SECONDS (9.5-11.5) 01/31/17 11:30 INR 0.97 (0.5-1.4) 01/31/17 11:30 PTT (Actin FS) 24.9 SECONDS (26.0-38.0) L 01/31/17 11:30 Sodium 132 mEq/L (136-145) L 02/03/17 05:38 Potassium 3.2 mEq/L (3.5-5.1) L 02/03/17 05:38 Chloride 99 mEq/L (98-107) 02/03/17 05:38 Carbon Dioxide 23.6 mEq/L (21.0-31.0) 02/03/17 05:38 Anion Gap 12.6 (7.0-16.0) 02/03/17 05:38 BUN 38 mg/dL (7-25) H 02/03/17 05:38 Creatinine 1.4 mg/dL (0.6-1.2) H 02/03/17 05:38 Est GFR ( Amer) 47.8 ml/min (>90) 02/03/17 05:38 Est GFR (Non-Af Amer) 39.5 ml/min 02/03/17 05:38 BUN/Creatinine Ratio 27.1 02/03/17 05:38 Glucose 122 mg/dL (40-70) H D 02/03/17 05:38 Hemoglobin A1c % 5.8 % (4.0-6.0) 02/02/17 04:35 Plasma/Ser Osmolality 300 mOsmol/kg (280-301) 01/31/17 11:30 Uric Acid 19.3 mg/dL (2.3-6.6) H 02/01/17 05:00 Calcium 9.2 mg/dL (8.6-10.3) 02/03/17 05:38 Phosphorus 2.8 mg/dL (2.5-5.0) 02/01/17 05:00 Magnesium 1.9 mg/dL (1.9-2.7) 02/01/17 05:00 Total Bilirubin 0.4 mg/dL (0.3-1.0) 02/03/17 05:38 AST 16 U/L (13-39) 02/03/17 05:38 ALT 8 U/L (7-52) 02/03/17 05:38 Alkaline Phosphatase 71 U/L (34-104) 02/03/17 05:38 Creatine Kinase 138 U/L (30-223) 02/03/17 05:38 CK-MB (CK-2) 2.8 ng/mL (0.6-6.3) 02/01/17 05:00 Troponin I 0.03 ng/mL (0.01-0.05) 01/31/17 11:30 B-Natriuretic Peptide 155.0 pg/mL (5.0-100.0) H 02/02/17 04:35 Total Protein 6.6 gm/dL (6.0-8.3) 02/03/17 05:38 Albumin 3.5 gm/dL (3.7-5.3) L 02/03/17 05:38 Globulin 3.1 gm/dL 02/03/17 05:38 Albumin/Globulin Ratio 1.1 (1.0-1.8) 02/03/17 05:38 Triglycerides 101 mg/dL (<150) 02/01/17 05:00 Cholesterol 152 mg/dL (<200) 02/01/17 05:00 LDL Cholesterol Direct 112 mg/dL (75-193) 02/01/17 05:00 HDL Cholesterol 39 mg/dL (23-92) 02/01/17 05:00 TSH 0.72 uIU/ml (0.34-5.60) 02/01/17 05:00 Urine Source CLEAN C 01/31/17 15:30 Urine Color YELLOW 01/31/17 15:30 Urine Clarity HAZY (CLEAR) 01/31/17 15:30 Urine pH 7.0 (4.6 - 8.0) 01/31/17 15:30 Ur Specific [place] 1.010 (1.005-1.030) 01/31/17 15:30 Urine Protein NEGATIVE mg/dL (NEGATIVE) 01/31/17 15:30 Urine Glucose (UA) NEGATIVE mg/dL (NEGATIVE) 01/31/17 15:30 Urine Ketones NEGATIVE mg/dL (NEGATIVE) 01/31/17 15:30 Urine Blood NEGATIVE (NEGATIVE) 01/31/17 15:30 Urine Nitrate NEGATIVE (NEGATIVE) 01/31/17 15:30 Urine Bilirubin NEGATIVE (NEGATIVE) 01/31/17 15:30 Urine Urobilinogen 0.2 E.U./dL (0.2 - 1.0) 01/31/17 15:30 Ur Leukocyte Esterase LARGE (NEGATIVE) H 01/31/17 15:30 Urine RBC 0-2 /hpf (0-5) 01/31/17 15:30 Urine WBC 25-50 /hpf (0-5) H 01/31/17 15:30 Ur Epithelial Cells FEW /lpf (FEW) 01/31/17 15:30 Urine Bacteria MANY /hpf (NONE SEEN) 01/31/17 15:30 Urine Myoglobin 5 ng/mL (0-13) 01/31/17 15:30 Urine Osmolality 299 mOsmol/kg 01/31/17 15:30 Ur Random Sodium 69 mmol/L 01/31/17 15:30 Urine Creatinine 36.5 mg/dl (Not Estab.) 01/31/17 15:30 Urine Microalbumin 5.7 ug/mL (Not Estab.) 01/31/17 15:30 Microalb/Creat Ratio 15.6 01/31/17 15:30 - Physical Exam Vitals and I&O: Vital Signs Temp 97.8 F 02/03/17 08:24 Pulse 67 02/03/17 08:24 Resp 16 02/03/17 08:24 BP 124/67 02/03/17 08:24 Pulse Ox 98 02/03/17 08:24 Intake & Output 02/02/17 02/03/17 02/03/17 18:59 06:59 18:59 Intake Total 1250 500 Output Total 1950 1400 Balance -700 -900 Weight (lbs) 71.412 kg 87.543 kg Intake: Oral 1250 500 Output: Urine 1950 1400 Other: # Bowel Movements 1 1 Stool Characteristics Soft Formed Formed Green Active Medications: Current Medications Acetaminophen (Tylenol) 650 mg PO Q6H PRN PRN Reason: Pain (MILD) Stop: 04/03/17 16:29 Last Admin: 02/03/17 09:35 Dose: 650 mg Sodium Chloride (Nacl 0.9%) 1,000 mls @ 100 mls/hr IV .Q10H [facility] Stop: 04/01/17 14:16 Last Admin: 02/02/17 21:04 Dose: 100 mls/hr Miscellaneous (Probiotic Screen) 1 ea MC PRN PRN PRN Reason: PROTOCOL Stop: 04/01/17 14:15 Pantoprazole Sodium (Protonix) 40 mg PO BID [facility] Stop: 04/01/17 16:59 Last Admin: 02/03/17 09:35 Dose: 40 mg Potassium Chloride (Klor-Con) 20 meq PO BID [facility] Stop: 04/04/17 16:59 Tramadol HCl (Ultram) 50 mg PO Q6HR PRN PRN Reason: Pain (Moderate) Stop: 04/03/17 16:27 Last Admin: 02/03/17 05:32 Dose: 50 mg Trimethoprim/Sulfamethoxazole (Bactrim Ds) 1 tab PO BID ANT Stop: 04/03/17 16:59 Last Admin: 02/03/17 09:35 Dose: 1 tab General: Alert, Oriented x3, No acute distress HEENT: Atraumatic, PERRLA, EOMI, Mucous membr. moist/pink Neck: Supple, +2 carotid pulse wo bruit Cardiovascular: Regular rate, Normal S1, Normal S2, Other (Low BP) Lungs: Other (decreased BS) Abdomen: Bowel sounds, Soft Extremities: Other (No edema, ), no Edema Neurological: Sensation intact, Other (Unstable gait) Skin: no Rash Psych/Mental Status: Mood NL Assessment/Plan - Problem List Patient Problems: All Active Problems GENERALIZED BODY ACHES (Acute) - Assessment Assessment: Electrolyte abnormalities Cx UTI SERGE Bradycardia 2nd to hypokalemia Ess HTN Anemia CD GERD - Plan Plan: Lab - Result Diagrams 02/01/17 05:00 02/01/17 05:00 Current Medications Sodium Chloride (Nacl 0.9%) 1,000 mls @ 100 mls/hr IV .Q10H ANT Stop: 04/01/17 14:16 Last Infusion: 02/01/17 02:20 Dose: Infused Levofloxacin (Levaquin Pb) 750 mg in 150 mls @ 100 mls/hr IV Q48H ANT Stop: 04/01/17 19:59 Last Infusion: 01/31/17 22:05 Dose: Infused Miscellaneous (Probiotic Screen) 1 ea MC PRN PRN PRN Reason: PROTOCOL Stop: 04/01/17 14:15 Pantoprazole Sodium (Protonix) 40 mg PO BID ANT Stop: 04/01/17 16:59 Last Admin: 02/01/17 09:00 Dose: 40 mg Potassium Chloride (Klor-Con) 20 meq PO DAILY ANT Stop: 04/02/17 08:59 Last Admin: 02/01/17 09:00 Dose: 20 meq Potassium Chloride (Klor-Con) 40 meq PO X1 ONE Stop: 02/01/17 16:01 Lab - Result Diagrams 02/03/17 05:38 02/03/17 05:38 Kidney fnc gradually improvimg Na up to 132, K to 3.2 started on Bactrim, f/u cr. closely f/u electrolytes, urine C/S increase oral K replacement Nutritional Asmnt/Malnutr-PDOC - Dietary Evaluation Malnutrition Findings (Please click <Entered> for more info): Nutritional Asmnt/Malnutrition Start: 02/01/17 15: 57 Text: Status: Active Freq: Document 02/01/17 15:57 [email or web address] (Rec: 02/01/17 16:30 VICTORIA [email or web address]) Nutritional Asmnt/Malnutrition Patient General Information Nutritional Screening High Risk Consult Diagnosis Acute Renal Failure, Hypokalemia, Hyponatremia Pertinent Medical Hx/Surgical Hx HTN, PUD/GERD, Chronic anemia Subjective Information Consult for wt loss and loss appetite, BS>160 received. Pt from assisted living, awake during the time of visit. Spoke with family, pt usually eat lunch and dinner daily since the breakfast at assisted living is too early in the morning. Usually appetite was good, on regular diet. Appetite decreased in past 3 weeks r/t diarhhea. UBW 180lb, possible wt loss. Pt comsumed about 10% of lunch tray, one bite of burger from outside. Per notes, pt had 25% of dinner last night and 50% of breakfast today. Per RN, pt has denture. Physical exam showed no muscel wasting. Current Diet Order/ Nutrition Support Regular Pertinent Medications Nacl 100ml/hr, Protonix, Kcal, Levaquin Pertinent Labs 02/01: Na 126L, K 2.0L, Cl 81L, BUN 98H, Cr 2.0H, Glu 131H, Alb 3.6L 01/31: Glu 168/134 Nutritional Hx/Data Height 1.5 m Height (Calculated Centimeters) 149.9 Current Weight (lbs) 71.214 kg Weight (Calculated Kilograms) 71.2 Weight (Calculated Grams) 21139.0 Usual body Weight (lbs) 180 % Usual Body Weight 87 [place] Body Weight 95 % [place] Body Weight 165 Body Mass Index (BMI) 31.7 Recent Weight Change Yes Weight Status Overweight GI Symptoms GI Symptoms None Difficult in: None Food Allergies No Usual diet at home Pt was on regular diet at assisted living Skin Integrity/Comment: intact Current %PO Poor (25-49%) Estimated Nutritional Goals BEE in Kcals: Using Current wt Calories/Kcals/Kg 25-27 Kcals Calculated [id number] Protein: Using Current wt Protein g/k Protein Calculated 71g monitor renal labs Fluid: ml Per MD d/t acute renal failure Nutritional Problem 2. Problem Problem Inadequant oral intake Etiology poor appetite Signs/Symptoms: PO intake 25-50% 1. Problem Problem Altered nutrition related lab values Etiology dx of acute renal failure Signs/Symptoms: BUN 98H, Cr 2.0H, Malnutrition Alert Protein-Calorie Malnutrition N/A Is there a minimum of two criteria No selected? Query Text:Check all the applicable criteria. A minimum of two criteria are recommended for diagnosis of either severe or non-severe malnutrition. Intervention/Recommendation Comments 1. Recommend Boost TID to increase nutritional intake. Explained supplement to pt family, and family is willing to take it. 2. F/U as high rist in 2-3 days, 02/03-02/04 Expected Outcomes/Goals Expected Outcomes/Goals 1. PO intake>75% to meet 100% of nutritional needs, comsume at least 1 serving of supplement per day 2. Wt to remain stable 3. Labs to improve 4. Skin to remain intact
[2017-02-03] MEDS ORDERED: Potassium Chloride 20 mEq ER Tab PO SCH (17:00)
== END 2017-02-03 17:45 | DRG 640 ==
LOC: ER 11:07 → ICU 12:35 → TELE 02-02 10:59
PROVIDERS: ADMIT General Practice; ATTEND General Practice
DX: E87.1 Hypo-osmolality and hyponatremia (principal); N17.0 Acute kidney failure with tubular necrosis; N39.0 Urinary tract infection, site not specified; E87.3 Alkalosis; G62.9 Polyneuropathy, unspecified; E87.6 Hypokalemia; D64.9 Anemia, unspecified; I10 Essential (primary) hypertension; K21.9 Gastro-esophageal reflux disease without esophagitis; I25.10 Atherosclerotic heart disease of native coronary artery without angina pectoris; R73.9 Hyperglycemia, unspecified; T50.2X5A Adverse effect of carbonic-anhydrase inhibitors, benzothiadiazides and other diuretics, initial encounter; B96.20 Unspecified Escherichia coli [E. coli] as the cause of diseases classified elsewhere; Z88.0 Allergy status to penicillin; Y92.89 Other specified places as the place of occurrence of the external cause; Z87.11 Personal history of peptic ulcer disease; Z82.49 Family history of ischemic heart disease and other diseases of the circulatory system; Z83.3 Family history of diabetes mellitus; Z79.899 Other long term (current) drug therapy; Z87.19 Personal history of other diseases of the digestive system
CPT/HCPCS: 36415-UA; 76770-TC; 80048-TC; 80053-TC; 80061-TC; 81001-TC; 81015-TC; 82043-90; 82550-TC; 82553; 82570-TC; 83036-90; 83735-TC; 83874-90; 83880-TC; 83930-90; 83935-90; 84100-TC; 84132-TC; 84300-TC; 84443-TC; 84484-TC; 84550-TC; 85025-TC; 85610-TC; 87086-90; 90799; 93005; 94760; C1751; J1956; J2001; J3480; J7030; X3904; Z7610